=== PATIENT | female | born 1985 | race Caucasian/White ===

== ENCOUNTER 2020-02-25 13:51 | Outpatient (CLI) | payer OTHER, SELFPAY ==
[2020-02-26 01:53] LABS: SARS-CoV-2 RNA PCR Negative
== END 2020-02-25 13:52 | disposition home or self-care (01) ==
LOC: CHSLAB 13:54
PROVIDERS: PCP Internal Medicine; Visit Provider Internal Medicine
DX: Z20.828 Contact with and (suspected) exposure to other viral communicable diseases (principal)
CPT/HCPCS: 87635; C9803; U0003

== ENCOUNTER 2020-04-05 12:25 | Outpatient (CLI) | payer OTHER, SELFPAY ==
[2020-04-06 13:52] LABS: SARS-CoV-2 RNA PCR Negative
== END 2020-04-05 12:26 | disposition home or self-care (01) ==
LOC: CHSLAB 12:28
PROVIDERS: PCP Internal Medicine; Visit Provider Internal Medicine
DX: Z20.828 Contact with and (suspected) exposure to other viral communicable diseases (principal)
CPT/HCPCS: 87635; C9803; U0003

== ENCOUNTER 2020-05-26 13:59 | Outpatient (CLI) | payer OTHER, SELFPAY ==
--- NOTE | ~2020-05-26 | MMUS_ITS ---
EXAMINATION: MM diagnostic stefano BI w clifford, US breast BI limited HISTORY: Palpable medial right breast lump and thickening of the lateral left breast TECHNIQUE: 3 D ML, MLO and CC tomosynthesis views of both breasts were performed and synthetic 2-D im ages were generated. CAD analysis was submitted and interpreted. High resolution targeted bilateral b reast ultrasound was performed. COMPARISON: 08/08/2026 bilateral diagnostic mammogram and limited right breast ultrasound BREAST PARENCHYMAL COMPOSITION: There are scattered areas of fibroglandular density. FINDINGS: MAMMOGRAPHIC FINDINGS: No suspicious mass or architectural distortion, malignant calcification, skin thickening or retractio n or significant new or developing density is detected. Occasional bilateral punctate microcalcifica tions. ULTRASOUND: There is no evidence of focal abnormal solid or cystic lesion in the vicinity of the IMPRESSION: 1. No mammographic evidence of malignancy 2. Routine annual mammographic screening BI-RADS Category 2: Benign finding(s). Reviewed, dictated and finalized at location A. TER OPERATOR IMPRESSION: 1. No mammographic evidence of malignancy 2. Routine annual mammographic screening BI-RADS Category 2: Benign finding(s).
== END 2020-05-26 14:00 | disposition home or self-care (01) ==
PROVIDERS: PCP Internal Medicine; Visit Provider Nurse Practitioner Obstetrics & Gynecology
DX: N63.0 Unspecified lump in unspecified breast (principal)
CPT/HCPCS: 76642; 77062; 77066; G0279

== ENCOUNTER 2020-10-24 09:29 | Outpatient (CLI) | payer OTHER, SELFPAY ==
[2020-10-24 12:44] LABS: SARS-CoV-2 RNA PCR Negative (Negative)
== END 2020-10-24 09:30 | disposition home or self-care (01) ==
LOC: CHSLAB 09:31
PROVIDERS: PCP Internal Medicine; Visit Provider Internal Medicine
DX: J06.9 Acute upper respiratory infection, unspecified (principal); J02.9 Acute pharyngitis, unspecified; Z20.822 Contact with and (suspected) exposure to COVID-19
CPT/HCPCS: 87081; 87880; C9803; U0003; U0005

== ENCOUNTER 2021-02-05 11:54 | Outpatient (CLI) | payer OTHER, SELFPAY ==
[2021-02-05 13:50] LABS: SARS-CoV-2 RNA PCR Negative (Negative)
== END 2021-02-05 11:55 | disposition home or self-care (01) ==
LOC: CHSLAB 11:56
PROVIDERS: PCP Internal Medicine; Visit Provider Internal Medicine
DX: Z20.822 Contact with and (suspected) exposure to COVID-19 (principal)
CPT/HCPCS: C9803; U0003; U0005

== ENCOUNTER 2021-06-05 16:54 | Outpatient (CLI) | payer OTHER, SELFPAY ==
[2021-06-05 18:16] LABS: SARS-CoV-2 RNA PCR Negative (Negative)
== END 2021-06-05 16:55 | disposition home or self-care (01) ==
PROVIDERS: PCP Internal Medicine; Visit Provider Internal Medicine
DX: Z20.822 Contact with and (suspected) exposure to COVID-19 (principal)
CPT/HCPCS: C9803; U0003; U0005

== ENCOUNTER 2021-06-12 11:23 | Outpatient (CLI) | payer OTHER, SELFPAY ==
--- NOTE | ~2021-06-12 | XR_ITS ---
XR sinus <3V DATE: 06/12/2021 11:50 INDICATION: Right facial pain. Sinusitis. TECHNIQUE: bri Caceres, lateral and submental vertical views COMPARISON: None FINDINGS: The paranasal sinuses and mastoid air cells are normally developed and aerated. Mild rightward bowing of the nasal septum. IMPRESSION: Normally aerated paranasal sinuses and mastoid air cells Reviewed, dictated and finalized at location B. CONTROLLER
--- NOTE | ~2021-06-12 | XR_ITS ---
XR_[id number]_CR 06/12/2021 11:50 Indication: Neck pain Procedure: 3 views cervical spine Comparison: No prior studies for comparison. Findings: Straightening of cervical lordosis, likely due to muscle spasm. Vertebral body and disc spa sisi are preserved. No prevertebral soft tissue abnormality. No fracture or traumatic malalignment. Od ontoid process within normal limits. Impression: 1: No significant abnormality of the cervical spine. Reviewed, dictated and finalized at location A. ATAL CRITICAL CARE NURSE Impression: 1: No significant abnormality of the cervical spine.
== END 2021-06-12 11:24 | disposition home or self-care (01) ==
LOC: CHSLAB 11:25
PROVIDERS: PCP Internal Medicine; Visit Provider Internal Medicine
DX: J32.9 Chronic sinusitis, unspecified (principal); M54.2 Cervicalgia
CPT/HCPCS: 70210; 72040

== ENCOUNTER 2021-07-16 17:31 | Outpatient (CLI) | payer OTHER, SELFPAY ==
[2021-07-16 18:18] LABS: SARS-CoV-2 Ag Negative (Negative)
[2021-07-17 19:08] LABS: SARS-CoV-2 RNA PCR Negative
== END 2021-07-16 17:32 | disposition home or self-care (01) ==
PROVIDERS: PCP Internal Medicine; Visit Provider Internal Medicine
DX: J06.9 Acute upper respiratory infection, unspecified (principal); Z20.822 Contact with and (suspected) exposure to COVID-19
CPT/HCPCS: 87426; C9803; U0003; U0005

== ENCOUNTER 2021-07-30 16:58 | Outpatient (CLI) | payer OTHER, SELFPAY ==
[2021-07-30 18:30] LABS: SARS-CoV-2 Ag Negative (Negative)
[2021-07-30 18:57] LABS: SARS-CoV-2 RNA PCR Negative (Negative)
== END 2021-07-30 16:59 | disposition home or self-care (01) ==
LOC: CHSLAB 17:00
PROVIDERS: PCP Internal Medicine; Visit Provider Nurse Practitioner Family
DX: R50.9 Fever, unspecified (principal); J06.9 Acute upper respiratory infection, unspecified; Z20.822 Contact with and (suspected) exposure to COVID-19
CPT/HCPCS: 87426; C9803; U0003; U0005

== ENCOUNTER 2021-12-25 15:03 | Outpatient (CLI) | payer OTHER, SELFPAY ==
[2021-12-25 15:43] LABS: Basophils Absolute Auto 0.05 K/mm3 (0.00-0.10); Basophils Percent Auto 0.6 % (0.0-1.0); Eosinophils Absolute Auto 0.16 K/mm3 (0.02-0.50); Hematocrit 42.1 % (35.0-49.0); Hemoglobin 14.1 g/dL (12.0-15.0); Immature Granulocyte Absolute 0.04 K/mm3 (0.00-0.00); Immature Granulocyte Percent A 0.5 % (0.0-0.0); Lymphocytes Percent Auto 40.7 % (18.0-42.0); Mean Corpuscular HGB Conc 33.5 g/dL (32.0-36.0); Mean Corpuscular Hemoglobin 30.6 pg (27.0-31.0); Mean Corpuscular Volume 91.3 fL (78.0-102.0); Monocytes Absolute Auto 0.43 K/mm3 (0.10-0.90); Monocytes Percent Auto 5.3 % (2.0-11.0); Neutrophils Absolute Auto 4.1 K/mm3 (1.7-7.2); Neutrophils Percent Auto 50.9 % (50.0-70.0); Platelet Count Result 415 K/mm3 (150-420); Red Blood Count 4.61 M/mm3 (4.20-5.40); Red Cell Distribution Width 12.9 % (11.6-14.4); White Blood Count 8.1 K/mm3 (4.8-10.8)
[2021-12-25 15:57] LABS: Hemoglobin A1C 5.6 % (<5.7)
[2021-12-25 16:35] LABS: Alanine Aminotransferase 53 U/L (14-59); Alkaline Phosphatase 141 U/L (46-116); Anion Gap 10 mmol/L (8-16); Aspartate Amino Transferase 21 U/L (15-37); Bilirubin,Total 0.8 mg/dL (0.00-1.00); Blood Urea Nitrogen 13 mg/dL (7-18); Calcium 9.1 mg/dL (8.5-10.1); Carbon Dioxide 27 mmol/L (21-32); Chloride 102 mmol/L (98-108); Cholesterol 266 mg/dL (0-200); Estimated Glomerular Filt Rate > 60; Glucose 86 mg/dL (70-99); HDL Direct 32 mg/dL (40-60); Osmolality Calculated 287 mOsm/kg (285-295); Potassium 3.8 mmol/L (3.5-5.1); Sodium 139 mmol/L (136-145); Thyroid Stimulating Hormone 2.02 uIU/mL (0.36-3.74); Total Protein 7.4 g/dL (6.4-8.2); Vitamin B12 347 pg/mL (193-986)
[2021-12-25 16:37] LABS: Beta HCG Quantitative < 1.00 mIU/mL (0-6); LDL Cholesterol Calculated 131 mg/dL (<130); LDL Cholesterol Direct 146 mg/dL (0-130); Triglycerides 517 mg/dL (0-150)
[2021-12-27 05:26] LABS: Insulin Level Total 12.8 uIU/mL (<=19.6)
[2021-12-27 11:43] LABS: DHEA-Sulfate 136 mcg/dL (23-266)
[2021-12-27 12:22] LABS: Vitamin D 25 Hydroxy 22 ng/mL (30-100)
[2021-12-28 14:54] LABS: Prolactin 6.7 ng/mL (***)
[2021-12-29 11:57] LABS: Testosterone Total 24 ng/dL (2-45)
== END 2021-12-25 15:04 | disposition home or self-care (01) ==
LOC: CHSLAB 15:05
PROVIDERS: PCP Physician Assistant; Visit Provider Physician Assistant
DX: L68.0 Hirsutism (principal); M25.50 Pain in unspecified joint; E53.8 Deficiency of other specified B group vitamins; E55.9 Vitamin D deficiency, unspecified; R53.83 Other fatigue; N92.6 Irregular menstruation, unspecified; E66.9 Obesity, unspecified; Z13.220 Encounter for screening for lipoid disorders
CPT/HCPCS: 36415; 80053; 80061; 82306; 82607; 82627; 83036; 83498; 83525; 83721; 84146; 84403; 84443; 84702; 85025; 86038

== ENCOUNTER 2022-02-20 12:19 | Emergency (ER) | payer OTHER, SELFPAY ==
--- NOTE | ~2022-02-20 | XR_ITS ---
EXAMINATION: XR chest 1V portable DATE: 02/20/2022 13:01 INDICATION: Right chest pain. Dizziness. TECHNIQUE: A single frontal view of the chest was obtained. COMPARISON: Chest 2 views 06/30/2019 FINDINGS: The chest demonstrates clear lungs without pneumonia, pleural effusion, or pneumothorax. Th e heart size is normal. IMPRESSION: 1. No acute cardiopulmonary disease. Reviewed, dictated and finalized at location A.
[2022-02-20 12:20] VITALS: BP 125/82; PULSE 66; RESP 18; TEMP 36.4; O2SAT 99
--- NOTE | 2022-02-20 12:32 | ED.URI ---
HPI - URI/Sore Throat General Chief Complaint: Unspecified Stated Complaint: DIZZY,SWEATING,PAIN IN SIDES COVID POSITIVE Time Seen by Provider: 02/20/22 12:22 Source: patient and RN notes reviewed Mode of arrival: ambulatory Limitations: no limitations History of Present Illness HPI Narrative: patient states that she began having symptoms 5 days ago and today felt dizzy and diaphoretic. She called her primary care physician thought she should be seen in the emergency room. Thought she might need a chest x-ray. She also complains of some bilateral flank discomfort without fever or chills. She says her urine seems more concentrated. She does admit that she has not been pushing enough fluids 2 days ago. She had 2 days of GI symptoms that have since resolved. She had a scratchy throat cough and body aches. MD elicited complaint: fever, cough and sore throat Onset (ago): day(s) (5) Consistency: intermittent Severity: moderate Description of mucous: clear Exacerbating factors: nothing Relieving factors: nothing Context: sick contacts Associated symptoms: fever, chills, myalgias, nasal congestion, sore throat, cough, nausea, vomiting and diarrhea Treatments prior to arrival: none Related Data Home Medications Medication Instructions Recorded Confirmed escitalopram oxalate 20 mg tablet 20 mg PO DAILY 06/13/19 02/20/22 (Lexapro) alprazolam 0.25 mg tablet 0.25 mg PO PRN PRN Anxiety 02/20/22 02/20/22 Allergies Allergy/AdvReac Type Severity Reaction Status Date / Time amoxicillin [From Augmentin] Allergy Nausea and Verified 02/20/22 12:39 Vomiting cephalexin [From Keflex] Allergy Unknown Verified 02/20/22 12:36 clavulanic acid Allergy Nausea and Verified 02/20/22 12:39 [From Augmentin] Vomiting clindamycin Allergy Rash Verified 02/20/22 12:39 doxycycline Allergy Rash Verified 02/20/22 12:39 Penicillins Allergy Headache Verified 02/20/22 12:39 cetirizine AdvReac Unknown Jittery Verified 02/20/22 12:36 ciprofloxacin AdvReac Unknown DIZZINESS Verified 02/20/22 12:36 AND NAUSEA Review of Systems Review of Systems: All systems reviewed & are unremarkable except as noted in HPI and below PMFSH Past Medical History Medical History (Updated 02/20/22 @ 13:17 by Efrain Ferreira MD) Depression Surgical History Surgical History (Updated 02/20/22 @ 12:37 by Efrain Ferreira MD) History of laparoscopic adjustable gastric banding been removed History of tonsillectomy Hx of cholecystectomy Family History Family History Mother Diabetes mellitus Family history of mental disorder Depression Family history of coronary artery disease Father No problems noted. Social History Social History Smoking status: Current every day smoker Alcohol intake: never Exam Const: General: healthy appearing, no acute distress and alert Nutritional Appearance: well nourished and obese Orientation/consciousness: patient oriented x3 Limitations: no limitations HENMT: Head: normal to inspection Ears: external ears normal General nose exam: Normal external nose present Face and sinus: normal facial exam Mouth: Yes Normal oral and palatal mucosa present and Yes moist mucous membranes Throat: posterior oropharynx normal Eyes: Conjunctivae: conjunctivae normal Pupils: Equal, round and reactive pupils present EOM: EOMs intact bilaterally Neck: Neck: normal visual inspection Resp: Effort & Inspection: normal respiratory effort Auscultation: clear to auscultation bilaterally Cardio: Rate: regular rate Rhythm: regular rhythm GI: GI Palp: Yes Soft to palpation and No Tenderness to palpation present (GI) Auscultation: normal bowel sounds Back/Spine/Pelvis: Cervical Spine: cervical ROM normal Thoracic/Lumbar Spine: thoraco-lumbar ROM normal Skin: General skin exam: normal color Rashes: no rashe
[2022-02-20 12:58] LABS: Add Urine Microscopic? YES; Appearance Urine Clear (Clear); Bilirubin Urine Negative (Negative); Blood Urine 3+ (Negative); Color Urine Yellow (Yellow); Glucose Urine UA Negative (Negative); Ketones Urine Negative (Negative); Leukocyte Esterase Ur Negative LEU/UL (Negative); Nitrate Urine Negative (Negative); Protein Urine Trace (Negative); Urobilinogen Urine 0.2 mg/dL (0.2-1.0)
[2022-02-20 13:02] LABS: Squamous Epithelial Cell Urine Moderate /hpf (Few); WBC Urine None seen /hpf (0-3)
[2022-02-20 13:03] LABS: Bacteria Urine 2+ /hpf
[2022-02-20 13:20] VITALS: PULSE 80; RESP 18; TEMP 36.4; O2SAT 98
== END 2022-02-20 13:20 | disposition home or self-care (01) ==
PROVIDERS: Emergency Provider Emergency Medicine
DX: U07.1 COVID-19 (principal)
CPT/HCPCS: 71045; 81001; 99283

== ENCOUNTER 2022-04-18 12:35 | Emergency (ER) | payer OTHER, SELFPAY ==
[2022-04-18 12:50] VITALS: BP 101/57; PULSE 89; RESP 20; TEMP 36.7; O2SAT 98
--- NOTE | 2022-04-18 13:24 | ED.URI ---
HPI - URI/Sore Throat General Chief Complaint: Upper Respiratory Infection Stated Complaint: Sore Throat,Lt Ear Irritation Source: patient and RN notes reviewed Mode of arrival: ambulatory Limitations: no limitations History of Present Illness HPI Narrative: 36-year-old female presenting for complaint of left ear pain, fatigue, sinus congestion and drainage. She endorses last night ear pain was worse, and today sore throat was worse. She is not taking anything for allergies. She endorses her child was sick last week. Denies sob, wheezing, nausea vomiting diarrhea, fevers chills. MD elicited complaint: cough Related Data Home Medications Medication Instructions Recorded Confirmed escitalopram oxalate 20 mg tablet 20 mg PO DAILY 06/13/19 04/18/22 (Lexapro) alprazolam 0.25 mg tablet 0.25 mg PO PRN PRN Anxiety 02/20/22 04/18/22 omeprazole 40 mg capsule,delayed 40 mg PO DAILY 04/18/22 04/18/22 release Allergies Allergy/AdvReac Type Severity Reaction Status Date / Time amoxicillin [From Augmentin] AdvReac Intermediate Nausea and Verified 04/18/22 13:15 Vomiting cetirizine AdvReac Intermediate Jittery Verified 04/18/22 13:15 ciprofloxacin AdvReac Intermediate DIZZINESS Verified 04/18/22 13:15 AND NAUSEA clavulanic acid AdvReac Intermediate Nausea and Verified 04/18/22 13:15 [From Augmentin] Vomiting Penicillins AdvReac Intermediate Headache Verified 04/18/22 13:15 cephalexin [From Keflex] AdvReac Mild Hives Verified 04/18/22 13:15 clindamycin AdvReac Mild Rash Verified 04/18/22 13:15 doxycycline AdvReac Mild Rash Verified 04/18/22 13:15 Review of Systems Review of Systems: ROS per HPI [facility] Past Medical History Medical History Depression Surgical History Surgical History History of laparoscopic adjustable gastric banding been removed History of tonsillectomy Hx of cholecystectomy Family History Family History Mother Diabetes mellitus Family history of mental disorder Depression Family history of coronary artery disease Father No problems noted. Social History Social History Smoking status: Current every day smoker Alcohol intake: never Exam Narrative: GENERAL: well-appearing EYES: PERRLA, conjunctivae clear ENT: Mucous membranes moist. Right TM pearly ashraf with light reflex; Left TM erythematous with erythematous canal, no tenderness or purulence; no tragal tenderness. Oropharynx erythematous without lesions or exudate, tonsils absent no drooling, no hoarseness, no trismus, uvula midline. No tripod positioning, muffled voice, soft palate or pharyngeal wall bulging NECK: Supple. No lymphadenopathy CHEST: Clear to auscultation, breath sounds equal. HEART: Regular rate and rhythm. No murmur heard. SKIN: Warm, dry, no rash. Course Course Emergency Course: Patient is aware of diagnosis, understands and agrees to treatment plan. Anticipatory guidance given. Patient agrees to follow-up as directed and is aware of reasons to seek care at the emergency department. Portions of this record may have been created with voice recognition software Level of Care: Express Care Visit Vital Signs Vital signs: Vital Signs Temperature 98.0 F 04/18/22 12:50 Pulse Rate 89 04/18/22 12:50 Respiratory Rate 20 04/18/22 12:50 Blood Pressure 101/57 L 04/18/22 12:50 Pulse Oximetry 98 04/18/22 12:50 Oxygen Delivery Room Air 04/18/22 12:50 Temperature 98.0 F 04/18/22 12:50 Pulse Rate 89 04/18/22 12:50 Respiratory Rate 20 04/18/22 12:50 Blood Pressure 101/57 L 04/18/22 12:50 Pulse Oximetry 98 04/18/22 12:50 Oxygen Delivery Room Air 04/18/22 12:50 reviewed MDM - URI/Sore Throat MDM Narrative Medical decision
== END 2022-04-18 13:10 | disposition home or self-care (01) ==
PROVIDERS: Emergency Provider Nurse Practitioner Family; PCP Physician Assistant
DX: J30.9 Allergic rhinitis, unspecified (principal); Z20.822 Contact with and (suspected) exposure to COVID-19; F32.A Depression, unspecified
CPT/HCPCS: 87081; 87426; 87804; 87880; 99213; C9803; G0463

== ENCOUNTER 2022-09-03 09:59 | Emergency (ER) | payer OTHER, SELFPAY ==
--- NOTE | ~2022-09-03 | CT_ITS ---
Non-contrast CT scan of the Abdomen and Pelvis Clinical indication: Right flank pain Technique: 2.5 mm axial scans were obtained through the abdomen and pelvis without intravenous or or al contrast. Dose reduction technique was used on this scan by utilizing automated exposure control a nd iterative reconstruction technique. The dose-length product (DLP) was 584.08 mGy-cm. COMPARISON: 06/07/2018 Findings: Images through the lung bases reveal no abnormalities. There is no evidence of renal or ureteral calculi. The kidneys and the ureters are nondilated. The liver, spleen, pancreas, and adrenals appear normal. Cholecystectomy clips are present. There is no aortic aneurysm. There is no evidence of bowel obstruction. Normal appendix. Images through the pelvis were performed. There is no evidence of ascites or lymphadenopathy. Urinary bladder unremarkable. No adnexal mass evident. No ascites. Impression: No significant abnormality seen. Reviewed, dictated and finalized at [facility]. Impression: No significant abnormality seen.
[2022-09-03 09:59] VITALS: BP 139/89; PULSE 74; RESP 16; TEMP 36; O2SAT 100
--- NOTE | 2022-09-03 10:10 | ED.ABDPAIN ---
HPI - Abdominal Pain General Chief Complaint: Back Pain/Injury Stated Complaint: back pain/urinary discomfort/nausea Time Seen by Provider: 09/03/22 10:06 Source: patient and RN notes reviewed Mode of arrival: ambulatory Limitations: no limitations History of Present Illness MD elicited complaint: flank pain Pertinent past history: none Onset (ago): day(s) (4 worse in the last 24 hours) Pain Consistency: intermittent Location: R flank Severity: moderate Quality: stabbing and sharp Radiation: RLQ Migration to: no migration Exacerbating factors: nothing Relieving factors: nothing Associated symptoms: denies other symptoms Related Data Home Medications Medication Instructions Recorded Confirmed escitalopram oxalate 20 mg tablet 20 mg PO DAILY 06/13/19 09/03/22 (Lexapro) Allergies Allergy/AdvReac Type Severity Reaction Status Date / Time amoxicillin [From Augmentin] AdvReac Intermediate Nausea and Verified 09/03/22 10:12 Vomiting cetirizine AdvReac Intermediate Jittery Verified 09/03/22 10:12 ciprofloxacin AdvReac Intermediate DIZZINESS Verified 09/03/22 10:12 AND NAUSEA clavulanic acid AdvReac Intermediate Nausea and Verified 09/03/22 10:12 [From Augmentin] Vomiting Penicillins AdvReac Intermediate Headache Verified 09/03/22 10:12 cephalexin [From Keflex] AdvReac Mild Hives Verified 09/03/22 10:12 clindamycin AdvReac Mild Rash Verified 09/03/22 10:12 doxycycline AdvReac Mild Rash Verified 09/03/22 10:12 Review of Systems Review of Systems: All systems reviewed & are unremarkable except as noted in HPI and below Constitutional: Constitutional: Denies chills and Denies fever(s) Gastrointestinal: Gastrointestinal: Denies nausea and Denies vomiting PMF Past Medical History Medical History (Updated 09/03/22 @ 11:31 by Efrain Ferreira MD) Depression Hypercholesterolemia Surgical History Surgical History History of laparoscopic adjustable gastric banding been removed History of tonsillectomy Hx of cholecystectomy Family History Family History Mother Diabetes mellitus Family history of mental disorder Depression Family history of coronary artery disease Father No problems noted. Social History Social History Smoking status: Current every day smoker Alcohol intake: never Exam Const: General: healthy appearing, no acute distress and alert Nutritional Appearance: well nourished and obese Orientation/consciousness: patient oriented x3 Limitations: no limitations Other: female nurse in room during examination. HENMT: Head: normal to inspection Ears: external ears normal Face/Nose/Sinus: Normal external nose present Face and sinus: normal facial exam Mouth: Yes moist mucous membranes Eyes: Conjunctivae: conjunctivae normal Pupils: Equal, round and reactive pupils present EOM: EOMs intact bilaterally Neck: Neck: normal visual inspection Resp: Effort & Inspection: normal respiratory effort Auscultation: clear to auscultation bilaterally Cardio: Rate: regular rate Rhythm: regular rhythm GI: GI Palp: Yes Soft to palpation and No Tenderness to palpation present (GI) Auscultation: normal bowel sounds Back/Spine/Pelvis: Back: CVA tenderness ( moderate on the right) Cervical Spine: cervical ROM normal Thoracic/Lumbar Spine: thoraco-lumbar ROM normal Skin: General skin exam: normal color Rashes: no rashes Neuro: General: patient oriented x3, moves all extremities, no focal motor deficits and CN's II-XI intact bilaterally Speech: normal speech Gait exam (Neuro): Normal gait present Extrem: General: normal to inspection and no clubbing, cyanosis or edema Psych: Mental Status: mental status grossly normal Affect: normal affect Attitude: cooperative Course Vital Signs Vital signs: Vital Signs
[2022-09-03] MEDS: KETOROLAC 30 MG/ML VIAL (*BKC) IM (10:25)
[2022-09-03 10:29] LABS: Basophils Absolute Auto 0.05 K/mm3 (0.00-0.10); Basophils Percent Auto 0.6 % (0.0-1.0); Eosinophils Absolute Auto 0.19 K/mm3 (0.02-0.50); Eosinophils Percent Auto 2.5 % (1.0-6.0); Hematocrit 41.9 % (35.0-49.0); Hemoglobin 13.5 g/dL (12.0-15.0); Immature Granulocyte Absolute 0.06 K/mm3 (0.00-0.00); Immature Granulocyte Percent A 0.8 % (0.0-0.0); Lymphocytes Absolute Auto 1.94 K/mm3 (1.10-4.50); Lymphocytes Percent Auto 25.1 % (18.0-42.0); Mean Corpuscular HGB Conc 32.2 g/dL (32.0-36.0); Mean Corpuscular Hemoglobin 29.9 pg (27.0-31.0); Mean Corpuscular Volume 92.9 fL (78.0-102.0); Mean Platelet Volume 9.1 fl (9.2-11.8); Monocytes Absolute Auto 0.45 K/mm3 (0.10-0.90); Monocytes Percent Auto 5.8 % (2.0-11.0); Neutrophils Percent Auto 65.2 % (50.0-70.0); Platelet Count Result 420 K/mm3 (150-420); Red Blood Count 4.51 M/mm3 (4.20-5.40); White Blood Count 7.7 K/mm3 (4.8-10.8)
[2022-09-03 10:30] LABS: Appearance Urine Clear (Clear); Bilirubin Urine Negative (Negative); Blood Urine Negative (Negative); Color Urine Light Yellow (Yellow); Glucose Urine UA Negative (Negative); Ketones Urine Negative (Negative); Leukocyte Esterase Ur Negative LEU/UL (Negative); Nitrate Urine Negative (Negative); Protein Urine Negative (Negative); Urobilinogen Urine 0.2 mg/dL (0.2-1.0); pH Urine 5.5 (5.0-8.0)
[2022-09-03 10:36] LABS: Add Urine Microscopic? NO
[2022-09-03 10:43] LABS: Alanine Aminotransferase 48 U/L (14-59); Albumin Level 3.8 g/dL (3.4-5.0); Alkaline Phosphatase 158 U/L (46-116); Anion Gap 7 mmol/L (8-16); Aspartate Amino Transferase 18 U/L (15-37); Bilirubin,Total 0.4 mg/dL (0.00-1.00); Blood Urea Nitrogen 14 mg/dL (7-18); CRP 0.5 mg/dL (0.0-0.9); Calcium 9.1 mg/dL (8.5-10.1); Carbon Dioxide 30 mmol/L (21-32); Chloride 105 mmol/L (98-108); Estimated CRCL calculation 122 ml/min; Estimated Glomerular Filt Rate > 60; Glucose 96 mg/dL (70-99); Osmolality Calculated 294 mOsm/kg (285-295); Potassium 4.5 mmol/L (3.5-5.1); Sodium 142 mmol/L (136-145); Total Protein 7.3 g/dL (6.4-8.2)
[2022-09-03 10:51] LABS: Pregnancy On Board Control Positive; Urine Pregnancy Test Negative
--- NOTE | 2022-09-03 11:09 | PC.NURSE ---
PT HAS RETURNED FROM CT AT THIS TIME. NAD NOTED. WILL CONTINUE TO MONITOR. PAIN TO RT FLANK WAS REPRODUCIBLE UPON PALPATION PER ERP.
[2022-09-03 11:13] VITALS: BP 111/71; PULSE 62; RESP 16; O2SAT 98
== END 2022-09-03 11:35 | disposition home or self-care (01) ==
PROVIDERS: Emergency Provider Emergency Medicine; PCP Physician Assistant
DX: S39.012A Strain of muscle, fascia and tendon of lower back, initial encounter (principal); F32.A Depression, unspecified; F17.200 Nicotine dependence, unspecified, uncomplicated; X58.XXXA Exposure to other specified factors, initial encounter
CPT/HCPCS: 36415; 74176; 80053; 81003; 81025; 85025; 86140; 96372; 99284; J1885

== ENCOUNTER 2022-09-20 11:46 | Emergency (ER) | payer OTHER, SELFPAY ==
[2022-09-20 11:48] VITALS: BP 141/65; PULSE 84; RESP 18; TEMP 37.2; O2SAT 99
--- NOTE | 2022-09-20 15:37 | ED.EYEPROB ---
HPI - Eye Problem General Chief complaint: Eye Problems Stated complaint: [place] [facility] Time Seen by Provider: 09/20/22 11:59 Source: patient Mode of arrival: ambulatory Limitations: no limitations History of Present Illness chief complaint: eye pain Onset (ago): day(s) (1) Onset description: sudden Duration: constant Location: both eyes Eye Symptoms: burning and redness Mechanism: chemical exposure Severity: severe If Pain, Quality: burning Related Data Home Medications Medication Instructions Recorded Confirmed escitalopram oxalate 20 mg tablet 20 mg PO DAILY 06/13/19 09/20/22 (Lexapro) Allergies Allergy/AdvReac Type Severity Reaction Status Date / Time amoxicillin [From Augmentin] AdvReac Intermediate Nausea and Verified 09/03/22 10:12 Vomiting cetirizine AdvReac Intermediate Jittery Verified 09/03/22 10:12 ciprofloxacin AdvReac Intermediate DIZZINESS Verified 09/03/22 10:12 AND NAUSEA clavulanic acid AdvReac Intermediate Nausea and Verified 09/03/22 10:12 [From Augmentin] Vomiting Penicillins AdvReac Intermediate Headache Verified 09/03/22 10:12 cephalexin [From Keflex] AdvReac Mild Hives Verified 09/03/22 10:12 clindamycin AdvReac Mild Rash Verified 09/03/22 10:12 doxycycline AdvReac Mild Rash Verified 09/03/22 10:12 Review of Systems Review of Systems: All systems reviewed & are unremarkable except as noted in HPI and below Constitutional: Constitutional: Denies chills and Denies fever(s) Eyes: Eyes: Denies change in vision ENT: Denies dizziness and Denies nasal congestion Cardiovascular: Cardiovascular: Denies chest pain Respiratory: Respiratory: Denies cough and Denies dyspnea Musculoskeletal: Musculoskeletal: Denies back pain Integumentary/Breasts: Skin/Breast: Denies rash Neurologic: Denies confusion and Denies headache(s) [facility] Past Medical History Medical History (Updated 09/20/22 @ 12:07 by Karlos uPga MD) Depression Hypercholesterolemia Surgical History Surgical History History of laparoscopic adjustable gastric banding been removed History of tonsillectomy Hx of cholecystectomy Family History Family History Mother Diabetes mellitus Family history of mental disorder Depression Family history of coronary artery disease Father No problems noted. Social History Social History Smoking status: Current every day smoker Alcohol intake: never Exam Const: General: healthy appearing Limitations: no limitations HENMT: Head: normal to inspection and no lacerations Face/Nose/Sinus: Normal external nose present and no epistaxis Mouth: Yes Normal oral and palatal mucosa present Teeth and gingiva: dentition normal Throat: uvula midline Eyes: Conjunctivae: conjunctival abnormality bilateral conjunctival chemosis and conjunctival injection diffuse; Negative for conjunctival icterus and without discharge Pupils: Equal, round and reactive pupils present EOM: EOMs intact bilaterally Direct Ophthalmoscopy: no photophobia Neck: Neck: no lymphadenopathy Chest: Chest palpation & inspection: normal inspection of the chest Resp: Effort & Inspection: normal respiratory effort Skin: General skin exam: normal color Rashes: no rashes Neuro: General: moves all extremities and CN's II-XI intact bilaterally Speech: normal speech Extrem: General: normal to inspection and no edema Course Vital Signs Vital signs: Vital Signs Temperature 37.2 C 09/20/22 11:48 Pulse Rate 84 09/20/22 11:48 Respiratory Rate 18 09/20/22 11:48 Blood Pressure 141/65 H 09/20/22 11:48 Pulse Oximetry 99 09/20/22 11:48 Oxygen Delivery Room Air 09/20/22 11:48 Temperature 37.2 C 09/20/22 11:48 Pulse Rate 84 09/20/22 11:48 Respiratory Rate 18 09/20/22 11:48 Blood Pressure 141/65 H
== END 2022-09-20 12:33 | disposition home or self-care (01) ==
PROVIDERS: Emergency Provider Family Medicine; PCP Physician Assistant
DX: H10.13 Acute atopic conjunctivitis, bilateral (principal); E78.00 Pure hypercholesterolemia, unspecified; F32.A Depression, unspecified; F17.210 Nicotine dependence, cigarettes, uncomplicated
CPT/HCPCS: 96372; 99283; J1100

== ENCOUNTER 2023-02-25 11:24 | Emergency (ER) | payer OTHER, SELFPAY ==
[2023-02-25] VITALS (19 sets, daily range): BP systolic 120; BP diastolic 71; PULSE 63–83; RESP 11–25; TEMP 36.7; O2SAT 95–100
--- NOTE | ~2023-02-25 | XR_ITS ---
EXAMINATION: XR chest 2V DATE: 02/25/2023 11:48 INDICATION: Central chest pain TECHNIQUE: PA and lateral views of the chest were obtained. COMPARISON: Chest radiograph dated 02/20/2022 FINDINGS: The lungs remain clear with no focal airspace opacities, pulmonary edema, pleural effusion or pneumot horax. The cardiomediastinal silhouette is normal. Mild thoracic spondylosis. Cholecystectomy clips i n the upper abdomen. IMPRESSION: 1. No acute cardiopulmonary disease. Reviewed, dictated and finalized at location A.
--- NOTE | 2023-02-25 11:25 | ECG_ITS ---
Measurements Intervals [place] Rate: 74 P: 7 PA: 147 QRS: -19 QRSD: 118 T: -1 QT: 384 QTc: 426 Interpretive Statements SINUS RHYTHM INCOMPLETE RIGHT BUNDLE BRANCH BLOCK BORDERLINE ST-T WAVE ABNORMALITY- INFERIOR LEADS BASELINE ARTIFACT- II, III, AVR, AVL, AVF, V3-V6 BORDERLINE ECG NO PREVIOUS ECG AVAILABLE FOR COMPARISON Electronically Signed On 02-25-2023 14:09:06 CDT by Wili Taveras D.O.
--- NOTE | 2023-02-25 11:38 | ED.CHESTPAIN ---
HPI - Chest Pain General Chief Complaint: Chest Pain Stated Complaint: CHEST PAIN Time Seen by Provider: 02/25/23 11:25 Source: patient Mode of arrival: ambulatory Limitations: no limitations History of Present Illness HPI narrative: patient is a 37-year-old female with some chest pain in her left side of her chest. She woke up with some chest pain this morning. She does get anxiety and it is similar however now she is having some arm pain down the left arm and up to the left neck also which is not her normal anxiety. Her mother did had her 1st coronary problem at 49 years of age. Patient is also having some mid epigastric discomfort. She has no gallbladder. MD complaint: chest pain and chest discomfort Onset (ago): hour(s) Timing of current episode: constant Prior episodes: Yes Onset: during rest, during exertion and awoke with symptoms Pain location: substernal and left chest Pain radiation: left arm and neck Severity: moderate Pain scale (0-10): 5 Quality: sharp Relieving factors: nothing Exacerbating factors: nothing Treatment prior to arrival: none Risk Factors Coronary artery disease risk factors: family history of CAD before age 50 Related Data On Oral Contraceptives: No Home Medications Medication Instructions Recorded Confirmed escitalopram oxalate 20 mg tablet 20 mg PO DAILY 06/13/19 09/20/22 (Lexapro) Allergies Allergy/AdvReac Type Severity Reaction Status Date / Time amoxicillin [From Augmentin] AdvReac Intermediate Nausea and Verified 09/03/22 10:12 Vomiting cetirizine AdvReac Intermediate Jittery Verified 09/03/22 10:12 ciprofloxacin AdvReac Intermediate DIZZINESS Verified 09/03/22 10:12 AND NAUSEA clavulanic acid AdvReac Intermediate Nausea and Verified 09/03/22 10:12 [From Augmentin] Vomiting Penicillins AdvReac Intermediate Headache Verified 09/03/22 10:12 cephalexin [From Keflex] AdvReac Mild Hives Verified 09/03/22 10:12 clindamycin AdvReac Mild Rash Verified 09/03/22 10:12 doxycycline AdvReac Mild Rash Verified 09/03/22 10:12 Review of Systems Review of Systems: All systems reviewed & are unremarkable except as noted in HPI and below Constitutional: Constitutional: Reports no additional constitutional complaints Eyes: Eyes: Reports no additional eye complaints ENT: Reports system reviewed and no additional complaints, except as documented Cardiovascular: Cardiovascular: Reports no additional cardiovascular complaints Respiratory: Respiratory: Reports no additional respiratory complaints Gastrointestinal: Gastrointestinal: Reports no additional gastrointestinal complaints Genitourinary: Genitourinary: Reports no additional female genitourinary complaints Musculoskeletal: Musculoskeletal: Reports no additional musculoskeletal complaints Integumentary/Breasts: Skin/Breast: Reports system reviewed and no additional complaints, except as docu Neurologic: Reports system reviewed and no additional complaints, except as documented Psychiatric: Psychiatric: Reports no additional psychiatric complaints Endocrine: Endocrine: Reports no additional endocrine complaints Hematologic/Lymphatic: Hematologic/Lymphatic: Reports no additional hematologic/lymphatic complaints Allergic/Immunologic: Allergic/Immunologic: Reports no additional allergic/immunologic complaints PMFSH Past Medical History Medical History Depression Hypercholesterolemia Surgical History Surgical History History of laparoscopic adjustable gastric banding been removed History of tonsillectomy Hx of cholecystectomy Family History Family History Mother Diabetes mellitus Family history of mental disorder Depression Family history of coronary artery disease Father No problems noted. Social History Social History (Reviewed
[2023-02-25 11:46] LABS: Basophils Absolute Auto 0.07 K/mm3 (0.00-0.10); Basophils Percent Auto 0.7 % (0.0-1.0); Eosinophils Absolute Auto 0.15 K/mm3 (0.02-0.50); Eosinophils Percent Auto 1.6 % (1.0-6.0); Hematocrit 43.6 % (35.0-49.0); Hemoglobin 14.2 g/dL (12.0-15.0); Immature Granulocyte Absolute 0.08 K/mm3 (0.00-0.00); Immature Granulocyte Percent A 0.8 % (0.0-0.0); Lymphocytes Absolute Auto 2.57 K/mm3 (1.10-4.50); Lymphocytes Percent Auto 27.2 % (18.0-42.0); Mean Corpuscular HGB Conc 32.6 g/dL (32.0-36.0); Monocytes Absolute Auto 0.53 K/mm3 (0.10-0.90); Monocytes Percent Auto 5.6 % (2.0-11.0); Neutrophils Absolute Auto 6.1 K/mm3 (1.7-7.2); Neutrophils Percent Auto 64.1 % (50.0-70.0); Platelet Count Result 425 K/mm3 (150-420); Red Blood Count 4.74 M/mm3 (4.20-5.40); Red Cell Distribution Width 12.8 % (11.6-14.4); White Blood Count 9.5 K/mm3 (4.8-10.8)
[2023-02-25 12:00] LABS: INR 0.9; Partial Thromboplastin Time 28.6 SEC (23.90-30.70); Prothrombin Time 10.2 Seconds (9.50-12.10)
[2023-02-25 12:04] LABS: D Dimer 0.37 mg/L (0.19-0.50)
[2023-02-25 12:04] LABS: Alanine Aminotransferase 31 U/L (14-59); Albumin Level 3.9 g/dL (3.4-5.0); Alkaline Phosphatase 147 U/L (46-116); Anion Gap 7 mmol/L (8-16); Aspartate Amino Transferase 14 U/L (15-37); Bilirubin,Total 0.6 mg/dL (0.00-1.00); Blood Urea Nitrogen 10 mg/dL (7-18); Calcium 9.3 mg/dL (8.5-10.1); Carbon Dioxide 28 mmol/L (21-32); Chloride 103 mmol/L (98-108); Estimated CRCL calculation 98 ml/min; Estimated Glomerular Filt Rate > 60; Glucose 85 mg/dL (70-99); Lipase 29 U/L (16-77); Osmolality Calculated 284 mOsm/kg (285-295); Potassium 3.9 mmol/L (3.5-5.1); Sodium 138 mmol/L (136-145); Total Protein 7.5 g/dL (6.4-8.2)
[2023-02-25 12:05] LABS: Troponin I < 4.0 ng/L (0.00-60.4)
[2023-02-25 12:16] LABS: Appearance Urine Slightly Cloudy (Clear); Bilirubin Urine Negative (Negative); Blood Urine Negative (Negative); Color Urine Light Yellow (Yellow); Glucose Urine UA Negative (Negative); Ketones Urine Negative (Negative); Leukocyte Esterase Ur Negative LEU/UL (Negative); Nitrate Urine Negative (Negative); Protein Urine Negative (Negative); Urobilinogen Urine 0.2 mg/dL (0.2-1.0)
[2023-02-25 12:19] LABS: Pregnancy On Board Control Positive; Urine Pregnancy Test Negative
[2023-02-25 12:21] LABS: Add Urine Microscopic? YES; Bacteria Urine Trace /hpf; RBC Urine None seen /hpf (0-2); Squamous Epithelial Cell Urine Moderate /hpf (Few); WBC Urine None seen /hpf (0-3)
[2023-02-25 14:16] LABS: Troponin I < 4.0 ng/L (0.00-60.4)
[2023-02-25] MEDS: predniSONE 20 MG TABLET PO (14:33)
[2023-02-25] MEDS: KETOROLAC (*BKC) 60 MG/2 ML VIAL IM (14:34)
== END 2023-02-25 14:53 | disposition home or self-care (01) ==
PROVIDERS: Emergency Provider Emergency Medicine; PCP Physician Assistant
DX: M94.0 Chondrocostal junction syndrome [Tietze] (principal); R07.89 Other chest pain; F17.200 Nicotine dependence, unspecified, uncomplicated
CPT/HCPCS: 36415; 71046; 80053; 81001; 81025; 83690; 84484; 85025; 85380; 85610; 85730; 93005; 96372; 99284; J1885; J7512

== ENCOUNTER 2023-04-30 11:36 | Emergency (ER) | payer OTHER, SELFPAY ==
[2023-04-30 11:59] VITALS: BP 106/52; PULSE 69; RESP 18; TEMP 36.1; O2SAT 100
--- NOTE | 2023-04-30 12:01 | ED.URI ---
HPI - URI/Sore Throat General Chief Complaint: Upper Respiratory Infection Stated Complaint: rt discomfort,cough,nasal drainage Time Seen by Provider: 04/30/23 12:04 Source: patient, RN notes reviewed and old records reviewed Mode of arrival: ambulatory Limitations: no limitations History of Present Illness HPI Narrative: 37-year-old female presents to the [facility] with complaints of right ear discomfort, cough and nasal drainage. Ear pain started Friday 5 days ago, cough started Friday, increased on Friday nasal drainage started last Friday Has taken Tylenol Motrin. Been using a Neti pot Flonase. Denies any fevers, chest pain, pain. Treatments prior to arrival: cold medicine Related Data Home Medications Medication Instructions Recorded Confirmed escitalopram oxalate 20 mg tablet 20 mg PO DAILY 06/13/19 04/30/23 (Lexapro) alprazolam 0.25 mg tablet 0.25 mg DIRECTED 04/30/23 04/30/23 Allergies Allergy/AdvReac Type Severity Reaction Status Date / Time amoxicillin [From Augmentin] AdvReac Intermediate Nausea and Verified 09/03/22 10:12 Vomiting cetirizine AdvReac Intermediate Jittery Verified 09/03/22 10:12 ciprofloxacin AdvReac Intermediate DIZZINESS Verified 09/03/22 10:12 AND NAUSEA clavulanic acid AdvReac Intermediate Nausea and Verified 09/03/22 10:12 [From Augmentin] Vomiting Penicillins AdvReac Intermediate Headache Verified 09/03/22 10:12 cephalexin [From Keflex] AdvReac Mild Hives Verified 09/03/22 10:12 clindamycin AdvReac Mild Rash Verified 09/03/22 10:12 doxycycline AdvReac Mild Rash Verified 09/03/22 10:12 Review of Systems Review of Systems: All systems reviewed & are unremarkable except as noted in HPI and below Constitutional: Constitutional: Reports no additional constitutional complaints Eyes: Eyes: Reports no additional eye complaints ENT: Reports as per HPI Cardiovascular: Cardiovascular: Reports no additional cardiovascular complaints, Denies chest pain and Denies dyspnea Respiratory: Respiratory: Reports as per HPI, Denies chest congestion, Reports cough and Denies dyspnea Gastrointestinal: Gastrointestinal: Reports no additional gastrointestinal complaints, Denies abdominal pain, Denies nausea and Denies vomiting Musculoskeletal: Musculoskeletal: Reports no additional musculoskeletal complaints Integumentary/Breasts: Skin/Breast: Reports system reviewed and no additional complaints, except as docu Neurologic: Reports system reviewed and no additional complaints, except as documented Psychiatric: Psychiatric: Reports no additional psychiatric complaints Allergic/Immunologic: Allergic/Immunologic: Reports no additional allergic/immunologic complaints PMFSH Past Medical History Medical History Depression Hypercholesterolemia Surgical History Surgical History History of laparoscopic adjustable gastric banding been removed History of tonsillectomy Hx of cholecystectomy Family History Family History Mother Diabetes mellitus Family history of mental disorder Depression Family history of coronary artery disease Father No problems noted. Social History Social History Smoking status: Current every day smoker Alcohol intake: never Comments At the time of my signature, I reviewed and agree with the nursing past medical, surgical, social, and family history. There is no relevant family history pertinent to the patient complaint. Exam Const: General: cooperative, healthy appearing, comfortable, no acute distress, well developed, alert and well nourished Nutritional Appearance: well nourished and obese Orientation/consciousness: patient oriented x3 Limitations: no limitations HENMT: Head: normal to inspection Ears: heari
== END 2023-04-30 12:29 | disposition home or self-care (01) ==
PROVIDERS: Emergency Provider Nurse Practitioner; PCP Physician Assistant
DX: H65.01 Acute serous otitis media, right ear (principal); J06.9 Acute upper respiratory infection, unspecified; F17.200 Nicotine dependence, unspecified, uncomplicated; E78.00 Pure hypercholesterolemia, unspecified; F32.A Depression, unspecified
CPT/HCPCS: 99211; G0463

== ENCOUNTER 2024-12-10 09:08 | Outpatient (CLI) | payer OTHER, SELFPAY ==
--- NOTE | ~2024-12-10 | MM_ITS ---
EXAMINATION: MM screening stefano BI w clifford HISTORY: Screening TECHNIQUE: Craniocaudal and mediolateral oblique 3-D tomosynthesis images were obtained and synthetic 2-D images were generated. CAD analysis was submitted and interpreted. COMPARISON: Comparison to multiple prior studies sequentially, with oldest reviewed study dated 08/08. BREAST PARENCHYMAL COMPOSITION: Not Dense: The breasts are almost entirely fatty. FINDINGS: There is no evidence of suspicious mass, calcification, or architectural distortion to sugg est malignancy in either breast. There has been no suspicious interval change. IMPRESSION: 1. No mammographic evidence of malignancy. 2. Recommend routine screening mammography in one year. BI-RADS Category 1: Negative Reviewed, dictated and finalized at location A.
== END 2024-12-10 09:09 | disposition home or self-care (01) ==
LOC: ANHIMG 09:10
PROVIDERS: PCP Physician Assistant; Visit Provider Obstetrics & Gynecology
DX: Z12.31 Encounter for screening mammogram for malignant neoplasm of breast (principal)
CPT/HCPCS: 77063; 77067

== ENCOUNTER 2025-04-29 09:56 | Outpatient (CLI) | payer OTHER, SELFPAY ==
--- NOTE | ~2025-04-29 | CT_ITS ---
EXAMINATION: CT soft tissue neck w con DATE: 04/29/2025 11:17 INDICATION: Neck mass under the left jaw TECHNIQUE: Computed tomography (CT) of the neck was performed with 75 mL Omnipaque-350 intravenous contrast. Automated exposure control and iterative reconstruction technique were employed. The dose-length product was 484.28 mGy-cm. COMPARISON: None FINDINGS: Orbits are normal. Large mucous retention cyst in the right maxillary sinus. Mild bubbly mucus in the right sphenoid sinus. Mastoid air cells and middle ear cavities are clear. Submandibular and parotid glands are normal and symmetric. Thyroid gland is unremarkable. Asymmetrically enlarged left jugular chain lymph node located posterior inferior to the angle of the mandible which measures 2.7 x 2.2 x 1.4 cm. There is a second mildly enlarged 2.5 x 1.7 x 1.2 cm right posterior triangle lymph node positioned posterior lateral to the right carotid bulb. There are a few additional mildly prominent but still normal-sized bilateral cervical lymph nodes all measuring less than sign 9 mm in maximal short axis diameter. No other masses identified. The vasculature is patent and normal in caliber. Airway is unremarkable. Superior mediastinum is unremarkable. Lung apices are normal. Straightening of the normal cervical lordosis. IMPRESSION: 1. Mildly enlarged level 2 left jugular chain lymph node measuring 1.4 cm maximal short axis diameter and right posterior triangle lymph node measuring 1.2 cm in maximal short axis diameter. Differential would include reactive lymphadenopathy, metastatic disease or lymphoma. Could consider ultrasound-g uided core needle biopsy. Reviewed, dictated and finalized at location A. ATION FRACTURING OPERATOR IMPRESSION: 1. Mildly enlarged level 2 left jugular chain lymph node measuring 1.4 cm maxim al short axis diameter and right posterior triangle lymph node measuring 1.2 cm in maximal short axis diameter. Differential would include reactive lymphadeno damian, metastatic disease or lymphoma. Could consider ultrasound-guided core ne edle biopsy.
--- OUTSIDE RECORDS SUMMARY | 2025-04-29 10:40 | XMS_ITS | Clinical Summary ---
Author Organization [facility] Address [address] [place] [phone] Phone Care Team Providers Care Security Flex Utility Officer Name Role Phone Lori Oneill Primary Care Provider [phone] Allergies Active Allergy Reactions Criticality Noted Date Comments Amoxicillin-Pot Clavulanate Urticaria High 09/25/19 16 Reaction as a child/hives. Has not used since. Sulfacetamide Sodium Swelling Medium 12/22/2022 Ciprofloxacin Hives Medium 02/18/2022 Hives and swelling Doxycycline Hives Medium 02/18/2022 Hives and swelling in the legs. Penicillins Headache Low 12/17/2021 Patient had Hives with Augmentin as a child. States for years she was able to take Amoxil alone but the last 2 courses she has noted NAVA that gets worse with each dose so has to avoid it. Able to tolerate Cefdinir currently Sulfa (Sulfonamide Antibiotics) Headache Low 12/30/2022 Medications omeprazole (PriLOSEC) 40 mg capsuleIndicati ons:Epigastric pain Take 1 capsule (40 mg total) by mouth daily 90 capsule 1 4 Active Additional Information Patient taking differently:40 mg oralAs needed, Reported on 02/12/2024 escitalopram (LEXAPRO) 20 mg tabletIndicatio ns:Anxiety TAKE 1 TABLET BY MOUTH EVERY DAY 90 tablet 1 5 Active ergocalciferol (VITAMIN D) 50,000 unit capsuleIndicati ons:Vitamin D deficiency TAKE 1 CAPSULE BY MOUTH ONE TIME PER WEEK 4 capsule 5 5 Active Additional Information Patient not taking.Reported on 04/18/2025 ibuprofen 200 mg tab/cap Take 1 tablet/capsule (200 mg total) by mouth every 6 (six) hours as needed for pain Active hydrocortisone (ANUSOL-HC) 2.5 % rectal creamIndication s:Other hemorrhoids INSERT INTO RECTUM 4 TIMES A DAY NEEDED FOR HEMORRHOIDS /RECTAL DISCOMFORT APPLY TO AFFECTED AREA 30 g 1 5 Active fluticasone propionate (FLONASE) 50 mcg/actuation nasal sprayIndication s:Seasonal allergies SPRAY 2 SPRAYS INTO EACH NOSTRIL EVERY DAY 48 mL 1 5 Active rosuvastatin (CRESTOR) 20 mg tablet Take 1 tablet (20 mg total) by mouth daily Active ALPRAZolam (XANAX) 0.25 mg tabletIndicatio ns:Anxiety TAKE 1 TABLET BY MOUTH NIGHTLY NEEDED FOR ANXIETY. 14 tablet 5 Active cefdinir (OMNICEF) 300 mg capsuleIndicati ons:Bilateral otitis media with effusion Take 1 capsule (300 mg total) by mouth 2 (two) times a day for 5 days 10 capsule 5 04/12/20 25 azithromycin (ZITHROMAX) 250 mg tabletIndicatio ns:Acute pharyngitis, unspecified etiology Take 2 tabs (500 mg) by mouth today, than 1 tab (250 mg) daily for 4 days. 6 tablet 5 04/24/20 25 Active Problems Problem Noted Date Diagnosed Date Obesity (BMI 30-39.9) 04/18/2025 Assessment & Plan (04/18/2025 11:46 AM CDT): Discussed the patient's BMI. The BMI is above average. BMI management plan is completed. BMI Follow-up includes: nutrition counseling, exercise counseling and education provided. BMI 36.0-36.9,adult 04/18/2025 Assessment & Plan (04/18/2025 11:47 AM CDT): Discussed the patient's BMI. The BMI is above average. BMI management plan is completed. BMI Follow-up includes: nutrition counseling, exercise counseling and education provided. AYAKA (obstructive sleep apnea) 02/13/2025 PCOS (polycystic ovarian syndrome) 02/13/2025 Acne vulgaris 02/13/2025 Acute bacterial conjunctivitis of both eyes 01/22 Varicose vein of leg 02/13/2025 Tinea cruris 02/13/2025 Other hemorrhoids 09/21/2023 Assessment & Plan (09/21/2023 10:58 PM CDT): Encouraged increase fiber exercise and water to have regular stools. May need to supplement fiber. Anusol HC provided to apply 4 times a day to hemorrhoids as well as use internally as needed. If symptoms persist she is to follow up immediately Family history of MD (myocardial infarction) Abnormal EKG 03/04/2023 Assessment & Plan (03/04/2023 9:52 PM CDT): Patient was seen at [place] [facility] with chest pain. Was diagnosed with costochondritis but also had abnormal EKG. Will make referral to Cardio for further evaluation. Patient is very concerned about the abnormality in his worried that she may have some type of major cardiac abnormality. Discussed with her the cardiac workup will help identify this but she has modifiable risk factors that she needs to change to decrease her cardiovascular risks. Strongly encouraged her to stop smoking. She states she will do this in declines sales assistant entertainment and media at this time advised that smoking can double the risk of a cardiovascular event. Also advised that diabetes can double her risk. Currently she is not diabetic but encouraged lifestyle to help prevent that from occurring. She also has a very high LDL. Had discussed statin in the past and she would declined. Will recheck the labs but she may benefit from being on a statin. Will follow-up pending her labs Filing encouraged exercise and weight loss as another modifiable this factor. Reminded patient if she would have return of chest pain shortness a breath syncopal episodes or presyncopal episode she is to immediately go back to the ER. She agreed with the plan I am going to order an echo so results will be available to the packaging engineer for her consultation appointment. Cigarette smoker 03/04/2023 Assessment & Plan (09/21/2023 10:57 PM CDT): Encouraged smoking cessation. Discussed 3 minutes. Reviewed options for assistance with cessation. Reviewed insulation helper sequela associated with smoking. Pt declines assistance at this time but may contact the office at anytime for further help as they desire. Assessment & Plan (03/04/2023 9:48 PM CDT): Encouraged smoking cessation. Discussed 3 minutes. Reviewed options for assistance with cessation. Reviewed snf sequela associated with smoking. Pt declines assistance at this time but may contact the office at anytime for further help as they desire. Morbid obesity 02/26/2023 Assessment & Plan (09/18/2024 11:56 PM CDT): Discussed the patient's BMI. The BMI is above average. BMI management plan is completed. BMI Follow-up includes: nutrition counseling, exercise counseling and education provided. Patient has an obesity-related condition (not limited to: hypertension, obstructive sleep apnea, osteoarthritis, hyperlipidemia, diabetes, etc.). Therefore, morbid obesity may be documented for patients with a BMI between 35.00-39.99. Assessment & Plan (09/21/2023 10:56 PM CDT): Discussed the patient's BMI. The BMI is above average. BMI management plan is completed. BMI Follow-up includes: nutrition counseling, exercise counseling and education provided. Patient has an obesity-related condition (not limited to: hypertension, obstructive sleep apnea, osteoarthritis, hyperlipidemia, diabetes, etc.). Therefore, morbid obesity may be documented for patients with a BMI between 35.00-39.99. Assessment & Plan (03/04/2023 9:50 PM CDT): Discussed the patient's BMI. The BMI is above average. BMI management plan is completed. BMI Follow-up includes: nutrition counseling, exercise counseling and education provided. Patient has an obesity-related condition (not limited to: hypertension, obstructive sleep apnea, osteoarthritis, hyperlipidemia, diabetes, etc.). Therefore, morbid obesity may be documented for patients with a BMI between 35.00-39.99. BMI 39.0-39.9,adult 12/30/2022 Assessment & Plan (09/07/2024 11:52 AM CDT): Discussed the patient's BMI. The BMI is above average. BMI management plan is completed. BMI Follow-up includes: nutrition counseling, exercise counseling and education provided. Assessment & Plan (12/31/2022 12:07 AM CDT): Discussed the patient's BMI. The BMI is above average. BMI management plan is completed. BMI Follow-up includes: nutrition counseling, exercise counseling and education provided. Mixed hyperlipidemia 01/20/2022 Assessment & Plan (09/18/2024 11:56 PM CDT): Encouraged patient to follow low fat/low chol diet like the Mediterranean diet. Increase good fats in the diet. Increase exercise. Monitor labs as needed. Assessment & Plan (03/04/2023 9:50 PM CDT): Encouraged patient to follow low fat/low chol diet like the Mediterranean diet. Increase good fats in the diet. Increase exercise. Monitor labs as needed. Her last LDL was very high. Reviewed the independent risk factor associated with an elevated LDL. Was almost 9 months ago so will recheck again. If still high will discuss consideration of a statin. Reviewed the risks benefits alternatives side effects and proper use of statins. Assessment & Plan (01/20/2022 6:40 PM CDT): Encouraged patient to follow low fat/low chol diet like the Mediterranean diet. Increase good fats in the diet. Increase exercise. Monitor labs as needed. Start Crestor 20 mg start Co Q10. Reviewed risks benefits alternatives side effects and proper use. Recheck labs in 4-6 months. Anxiety 01/12/2022 Assessment & Plan (09/18/2024 11:55 PM CDT): Depression anxiety symptoms have been stable with the Lexapro 20. Continue to monitor Assessment & Plan (09/21/2023 10:55 PM CDT): Continue with Lexapro 20 and Xanax. Patient states she feels like a dog really does help as comfort and is another modality of treatment for her anxiety and depression. Letter provided to support this. Discussed with her the difference between a service animal in a support animal and she verbalized understanding that the letter is for an emotional support animal. Assessment & Plan (01/12/2022 9:17 PM CDT): Continue Lexapro as she has seen some improvement. Still some breakthrough symptoms. Will provide Xanax to use sparingly for these episodes. Vitamin D deficiency 12/17/2021 Assessment & Plan (09/18/2024 11:55 PM CDT): Supplement Assessment & Plan (09/21/2023 10:56 PM CDT): Supplement Assessment & Plan (01/20/2022 6:38 PM CDT): Supplement Assessment & Plan (01/12/2022 9:15 PM CDT): Supplement Assessment & Plan (12/17/2021 1:27 PM CDT): Patient has not been able to regularly afford the vitamin-D supplement. Will recheck level. May consider prescriptive 50,000 use pending the results. Moderate episode of recurrent major depressive d isorder 12/17/2021 Assessment & Plan (09/18/2024 11:55 PM CDT): Depression anxiety symptoms have been stable with the Lexapro 20. Continue to monitor Assessment & Plan (09/21/2023 10:55 PM CDT): Continue with Lexapro 20 and Xanax. Patient states she feels like a dog really does help as comfort and is another modality of treatment for her anxiety and depression. Letter provided to support this. Discussed with her the difference between a service animal in a support animal and she verbalized understanding that the letter is for an emotional support animal. Assessment & Plan (03/04/2023 9:49 PM CDT): Patient with depression anxiety. Continue the Lexapro 20. Has Xanax available to use as needed but advised if continues to require more may need to add a 2nd daily medication. She is in agreement with the plan. Assessment & Plan (01/20/2022 6:38 PM CDT): Continue with Lexapro 20 mg and Xanax p.r.n. Assessment & Plan (01/12/2022 9:17 PM CDT): Continue Lexapro as she has seen some improvement. Still some breakthrough symptoms. Will provide Xanax to use sparingly for these episodes. Assessment & Plan (12/17/2021 1:27 PM CDT): Stable with the Lexapro 20 mg. Has been doing well on it with symptoms well controlled. Strongly encouraged her to continue with counseling. Low vitamin B12 level 12/17/2021 Assessment & Plan (01/12/2022 9:15 PM CDT): Monitor labs Assessment & Plan (12/17/2021 1:30 PM CDT): Check labs Polyarthralgia 12/17/2021 Assessment & Plan (01/12/2022 9:15 PM CDT): Will check JOY and due to joint pain Assessment & Plan (12/17/2021 1:31 PM CDT): Patient has noted increased poly arthralgias over the last few years. She has a family history of rheumatoid arthritis with her mother and a sister that has pernicious anemia. Will check JOY . Irregular menstrual cycle 12/17/2021 Assessment & Plan (12/17/2021 1:31 PM CDT): History of irregular menses. She is currently fairly regular skipping at the most once a couple times a year. She is currently not sexually active so does not need control. Will do PCOS workup to determine if there is an underlying reason. Hirsutism 12/17/2021 Assessment & Plan (01/12/2022 9:16 PM CDT): Hirsutism has been present. Will do PCOS workup as her cycles have been irregular and she has difficulty losing weight Assessment & Plan (12/17/2021 1:32 PM CDT): Patient has noted hirsutism for decades. She was told she had PCOS when she was a teenager but does not sound like has ever been actively treated. Will check PCOS labs and determine proper treatment upon review. Have her follow-up in 3-4 weeks did develop plan. Fatigue 12/17/2021 Assessment & Plan (03/04/2023 9:49 PM CDT): Probably multifactorial. Check labs and followup to re-evaluate Assessment & Plan (01/12/2022 9:16 PM CDT): Probably multifactorial. Check labs and followup to re-evaluate Assessment & Plan (12/17/2021 1:32 PM CDT): Probably multifactorial. Check labs and followup to re-evaluate Resolved Problems Problem Noted Date Diagnosed Date Resolved Date Annual physical exam 09/18/2024 025 Assessment & Plan (09/18/2024 11:56 PM CDT): Encouraged healthy lifestyle, good nutrition and exercise. Encouraged Calcium and Vitamin D and weight bearing exercise for bone health. Reviewed immunizations Reviewed age appropirate screenings. Neck pain 09/18/2024 02/13/2025 Assessment & Plan (09/18/2024 11:57 PM CDT): Patient has noted increased neck pain headaches and teeth grinding. Difficult to know the underlying cause but suspicion for sleep apnea she is grinding her teeth which could lead to the headaches in the neck pain. Recommend starting with a sleep study. Will refer to sleep Medicine. Will start with physical therapy to try to help with the symptoms. Use an anti-inflammatory as needed heat to the area as needed. Follow up pending the sleep study and therapy and follow up in 8-12 weeks to reassess or sooner for any other problems or concerns Snoring 09/18/2024 02/13/2025 Assessment & Plan (09/30/2024 3:54 PM CDT): The patient presents with snoring and daytime fatigue. Per her request, I have recommended home sleep test and she will follow up here in 4 months. Assessment & Plan (09/18/2024 11:57 PM CDT): Patient has noted increased neck pain headaches and teeth grinding. Difficult to know the underlying cause but suspicion for sleep apnea she is grinding her teeth which could lead to the headaches in the neck pain. Recommend starting with a sleep study. Will refer to sleep Medicine. Will start with physical therapy to try to help with the symptoms. Use an anti-inflammatory as needed heat to the area as needed. Follow up pending the sleep study and therapy and follow up in 8-12 weeks to reassess or sooner for any other problems or concerns Daytime sleepiness 09/18/2024 Assessment & Plan (09/18/2024 11:57 PM CDT): Patient has noted increased neck pain headaches and teeth grinding. Difficult to know the underlying cause but suspicion for sleep apnea she is grinding her teeth which could lead to the headaches in the neck pain. Recommend starting with a sleep study. Will refer to sleep Medicine. Will start with physical therapy to try to help with the symptoms. Use an anti-inflammatory as needed heat to the area as needed. Follow up pending the sleep study and therapy and follow up in 8-12 weeks to reassess or sooner for any other problems or concerns Facial rash 09/21/2023 02/13/2025 Assessment & Plan (09/21/2023 10:57 PM CDT): Patient's packaging engineer notes facial rash is concerned it could be associated with lupus. Will check an JOY. Also discussed rosacea. If it is negative could consider a topical antibiotic. Other forms of systemic lupus erythematosus 09/12/2023 09/21/2023 Dizziness 09/12/2023 02/13/2025 Precordial chest pain 06/13/20232024 Tobacco dependence 06/13/2023 Chest wall pain 03/04/2023 09/18/2024 Assessment & Plan (03/04/2023 9:47 PM CDT): Patient was diagnosed with costochondritis at the ER. Encouraged anti- inflammatories, topical pain medications like Voltaren and or lidocaine patches. She is to continue to monitor closely Cough 03/03/2023 09/18/2024 BMI 37.0-37.9, adult 02/26/202309/16/ 024 Assessment & Plan (02/26/2023 10:20 AM CDT): Discussed the patient's BMI. The BMI is above average. BMI management plan is completed. BMI Follow-up includes: nutrition counseling, exercise counseling and education provided. Acute non-recurrent pansinusitis 12/31/2022 09/18/2024 Assessment & Plan (12/31/2022 12:07 AM CDT): Start antibiotic, antihistamine (Claritin OR Zyrtec), Mucinex 12hour and Steroid nasal spray (Flonase). Push fluids. Rest. Supportive care. If sxs worsen or don\'t improve, pt is to followup in the office. Discussed multiple antibiotic allergies -- Thinks she remembers taking Keflex. Reviewed 1/3 of pts with allergies to PNC can react to cephalosporin. She has multiple allergies and did not get a response to Zpac. Willingto try. Reviewed s/s of drug reaction. If notes any reaction she is to stop the Omnicef immediately take a Benadryl and call the office. She is in agreement with the plan Morbid obesity 12/30/2022 02/26/2023 Assessment & Plan (12/31/2022 12:07 AM CDT): Discussed the patient's BMI. The BMI is above average. BMI management plan is completed. BMI Follow-up includes: nutrition counseling, exercise counseling and education provided. Patient has an obesity-related condition (not limited to: hypertension, obstructive sleep apnea, osteoarthritis, hyperlipidemia, diabetes, etc.). Therefore, morbid obesity may be documented for patients with a BMI between 35.00-39.99. COVID 02/18/2022 09/18/2024 Assessment & Plan (03/10/2022 8:04 PM CDT): ---Remain off work thru02/28 RTW on 03/01--- Let pt know the newest CDC recommendations are as follows: If positive COVID: Stay home for at least 5 days and isolate from others in your home. Wear a well-fitted mask if you must be around others in your home. End isolation after 5 full days if you are fever-free for 24 hours (without the use of fever-reducing medication) and your symptoms are improving. Wear a well-fitted mask for 10 full days any time you are around others inside your home or in public. Do not go to places where you are unable to wear a mask. Avoid travel Avoid being around people who are at high risk Discussed mAb and Paxlovid as treatment options. She has chosen to monitor Treat sxs with Tylenol, Cough/cold medication otc and add VitD 5,000IU daily and Zinc 50mg daily. Monitor sxs and call or go to the ER if has any of the following: --trouble breathing --persistent pain or pressure in the chest --new confusion --inability to wake or stay awake -- bluish lips or face Assessment & Plan (02/18/2022 1:39 PM CDT): Let pt know the newest CDC recommendations are as follows: If positive COVID: Stay home for at least 5 days and isolate from others in your home. Wear a well-fitted mask if you must be around others in your home. End isolation after 5 full days if you are fever-free for 24 hours (without the use of fever-reducing medication) and your symptoms are improving. Wear a well-fitted mask for 10 full days any time you are around others inside your home or in public. Do not go to places where you are unable to wear a mask. Avoid travel Avoid being around people who are at high risk Discussed MAb and Paxlovid -- she wants to monitor sxs to see if they continue to remain mild. Treat sxs with Tylenol, Cough/cold medication otc and add VitD 5,000IU daily and Zinc 50mg daily. Monitor sxs and call or go to the ER if has any of the following: --trouble breathing --persistent pain or pressure in the chest --new confusion --inability to wake or stay awake -- bluish lips or face Diabetes mellitus screening 01/12/2022 09/18/2024 Assessment & Plan (03/04/2023 9:49 PM CDT): Check labs Assessment & Plan (01/12/2022 9:16 PM CDT): Check labs Epigastric pain 01/12/2022 09/18/2024 Assessment & Plan (09/21/2023 10:56 PM CDT): Patient is having acid reflux type symptoms. Continue working with Cardiology but would recommend starting omeprazole to see if this decreases some of the substernal symptoms she is experiencing Assessment & Plan (01/20/2022 6:39 PM CDT): Discussed GERD at length including anatomy, behavioral changes (raise HOB, meal timings), dietary changes and medication options. Reviewed risks, benefits alternatives, side effects and proper use. Followup if sxs worsen or has hematochezia or hematemeis. Start PPI Assessment & Plan (01/12/2022 9:16 PM CDT): Suspect her midepigastric pain and burning is related to reflux. Will start with omeprazole. Discussed GERD at length including anatomy, behavioral changes (raise HOB, meal timings), dietary changes and medication options. Reviewed risks, benefits alternatives, side effects and proper use. Followup if sxs worsen or has hematochezia or hematemeis. Morbid obesity 12/17/2021 12/30/2022 Assessment & Plan (01/20/2022 6:39 PM CDT): Discussed the patient's BMI. The BMI is above average. BMI management plan is completed. BMI Follow-up includes: nutrition counseling, exercise counseling and education provided. Patient has an obesity-related condition (not limited to: hypertension, obstructive sleep apnea, osteoarthritis, hyperlipidemia, diabetes, etc.). Therefore, morbid obesity may be documented for patients with a BMI between 35.00-39.99. Assessment & Plan (12/17/2021 1:31 PM CDT): Discussed the patient's BMI. The BMI is above average. BMI management plan is completed. BMI Follow-up includes: nutrition counseling, exercise counseling and education provided. Lipid screening 12/17/2021 03/04/2023 Assessment & Plan (01/12/2022 9:16 PM CDT): Check labs Assessment & Plan (12/17/2021 1:32 PM CDT): Check labs BMI 38.0-38.9,adult 12/17/2021 09/19/19 25 Assessment & Plan (09/21/2023 10:56 PM CDT): Discussed the patient's BMI. The BMI is above average. BMI management plan is completed. BMI Follow-up includes: nutrition counseling, exercise counseling and education provided. Assessment & Plan (01/20/2022 6:39 PM CDT): Discussed the patient's BMI. The BMI is above average. BMI management plan is completed. BMI Follow-up includes: nutrition counseling, exercise counseling and education provided. Assessment & Plan (12/17/2021 1:32 PM CDT): Discussed the patient's BMI. The BMI is above average. BMI management plan is completed. BMI Follow-up includes: nutrition counseling, exercise counseling and education provided. Encounters Date Type Department Care Team Description 04/25/2025 Orders Only [address] [place] [phone] Lori Oneill PA Neck mass (Primary Dx) 04/19/[address] [place] [phone] Lori Oneill PA 04/19/2025 Results Follow-Up [address] [place] [address] [place] [phone] Lori Oneill PA Comprehensive metabolic panel, Mononucleosis screen, CBC with auto differential, Additional followed-up results: 2 04/18/2025 1:25 PM CDT Lab [address] [address] Sore throat 04/18/2025 11:30 AM CDT Office Visit [facility] [address] [place] [address] Lori Oneill PA Sore throat (Primary Dx); Cervical lymphadenopathy; Obesity (BMI 30-39.9); BMI 36.0-36.9,adult 04/06/2025 3:00 PM CDT Office Visit [facility] [address] [place] [phone] Valery Singleton, JORDAN Acute viral pharyngitis (Primary Dx); Bilateral otitis media with effusion 03/10/2025 7:15 PM CDT Office Visit [facility] [address] [place] [phone] Layla Comer, JORDAN Non-recurrent acute suppurative otitis media of right ear without spontaneous rupture of tympanic membrane (Primary Dx); Viral respiratory infection; Antibiotic-induced yeast infection from Last 3 Months Immunizations Immunization Administration Dates Next Due DTP 11/18/1989, 6,12/01/1984,02/24 Influenza, Trivalent, Preser vative Free, Intramuscular 03/12/2016 Influenza, Unspecified 06/23/2024(Deferr ed: Patient Refused),07/24/2022(Deferred: Patient Refused),06/23/2022(Deferred: Patient Refused),07/24/2021(Deferred: Patient Refused) MMR 01/26/1993 OPV 11/18/1989, 6,12/01/1984,02/24 Rho (D) Immune Globulin, IV or IM 02/10/2016 Tdap 03/12/2016 Surgical History Surgery Date Site/Laterality Comments TONSILLECTOMY AND ADENOIDECTOMY 03/23/2015 CHOLECYSTECTOMY 2018 ABDOMINAL SURGERY 2019 laporoscopy for endometriosis diagnosis (negative) BARIATRIC SURGERY 2008 lap band removed 2009 Medical History Medical History Date Comments Anxiety Depression OCD (obsessive compulsive disorder) GERD (gastroesophageal reflux disease) Menstrual problem 1997 Dysmenorrhea 1998 Migraines 1997 Family History Medical History Relation Name Comments Alcohol abuse Father Abdifatah Cancer Father Abdifatah Hearing loss Father Abdifatah Heart disease Father Abdifatah Hypotension Father Abdifatah Liver disease Father Abdifatah Cancer Father's Sister Aniyah Arthritis Mother Risa COPD Mother Risa Depression Mother Risa Diabetes Mother Risa Glaucoma Mother Risa Heart attack Mother Risa Heart disease Mother Risa Hyperlipidemia Mother Risa Hypertension Mother Risa Obesity Mother Risa Rheum arthritis Mother Risa Thyroid disease Mother Risa Cancer Paternal Grandmother Bobbye Alcohol abuse Sister 1 Jennie Depression Sister 1 Jennie Drug abuse Sister 1 Jennie Pernicious anemia Sister 1 Jennie Learning disabilities Sister 2 Margie Miscarriages / Stillbirths Sister 2 Margie Relation Name Status Comments Father Abdifatah Alive Father's Sister Aniyah Alive Mother Risa Alive Paternal Grandmother Bobbye Alive Sister 1 Jennie Alive Sister 2 Margie Alive Social History Tobacco Use Types Packs/Day Years Used Date Smoking Tobacco: Former Cigarettes 1 24 1 - 03/2021 Smokeless Tobacco: Never Tobacco Cessation:Counseling Given: Not Answered Alcohol Use Standard Drinks/Week Comments Never 0 (1 standard drink = 0.6 oz pur e alcohol) PHQ-2 Answer Date Recorded PHQ-2 Total Score (If total score is 3 or more points, staff should administer the PHQ-9) 1 04/18/2025 AUDIT-C Answer Date Recorded Q1: How often do you have a drink containing alcohol? Never 04/18/2025 Q2: How many drinks containi ng alcohol do you have on a typical day when you are drinking? Patient does not drink Q3: How often do you have si x or more drinks on one occasion? Never 04/18/2025 Comments No Sex and Gender Information Value Date Recorded Sex Assigned at Not on file Legal Sex Female 11:38 AM [employer]IFICIAL [employer]AR[employer] Gender Identity Not on file Sexual Orientation Not on file Last Filed Vital Signs Vital Sign Reading Time Taken Comments Blood Pressure 134/72 04/18/2025 11:44 AM CDT Pulse 71 04/18/2025 11:44 AM CDT Temperature 37.1 C (98.8 F) 04/18/2025 11:44 AM CDT Respiratory Rate 18 04/06/2025 2:44 PM CDT Oxygen Saturation 97% 04/18/2025 11:44 AM CDT Inhaled Oxygen Concentration - - Weight 97.5 kg (215 lb) 04/18/2025 11:44 AM CDT Height 162.6 cm (5' 4) 04/18/2025 11:44 AM CDT Body Mass Index 36.9 04/18/2025 11:44 AM CDT Plan of Treatment Health Maintenance Due Date Last Done Comments Cervical Cancer Screening 1983 Hepatitis C Screening 1983 Varicella Vaccines (1 of 2 - 13+ 2-dose series) 11/24/1996 Hepatitis B Screening 11/24/2001 HPV Vaccines (1 - 3-dose SCDM series) 11/24/2010 Influenza Vaccine (#1) 2025 03/12/2016 Regular Well Visit/Exam 18-64 09/07/2025 09/07/2024 Breast Cancer Screening-Mammogram 12/10/2025 12/10/2024 DTaP/Tdap/Td Vaccine (6 - Td or Tdap) 03/12/2026 03/12/2016, 11/18/1989, 09/30/1985, Additional history exists Depression Screening 04/18/2026 04/18/2025, 01/26/2025, 09/07/2024, Additional history exists Pneumococcal vaccine <65 Aged Out No longer eligible based on patient's age to complete this topic Procedures Procedure Name Priority Date/Time Associated Diagnosis Comments EGFR Routine 04/18/2025 1:32 PM CDT Sore throat DIFFERENTIAL AUTO Routine 04/18/2025 1:3 2 PM CDT Sore throat CBC WITH AUTO DIFFERENTIAL Routine 04/18/2025 1:32 PM CDT Sore throat MONONUCLEOSIS SCREEN Routine 04/18/2025 1:32 PM CDT Sore throat COMPREHENSIVE METABOLIC PANEL Routine 04/18/2025 1:32 PM CDT Sore throat POC INFLUENZA A/B, COVID-19 ANTIGEN Routine 04/06/2025 3:12 PM CDT Acute viral pharyngitis POCT RAPID STREP Routine 04/06/2025 3:11 PM CDT Acute viral pharyngitis POCT RAPID STREP Routine 03/10/2025 7:31 PM CDT Non-recurrent acute suppurative otitis media of right ear without spontaneous rupture of tympanic membrane POC INFLUENZA A/B, COVID-19 ANTIGEN Routine 03/10/2025 7:31 PM CDT Non-recurrent acute suppurative otitis media of right ear without spontaneous rupture of tympanic membrane HM MAMMOGRAPHY Routine 12/10/2024 10:28 AM CDT from Last 3 Months or Most Recently Relevant to Health Maintenance Results * eGFR (04/18/2025 1:32 PM CDT) Pathologist [facility] eGFR >90 >=60 mL/min/1. 73 m2 Comment: Interpretive Data Reference Interval Normal >/= 90 mL/min/1.73m2 Mildly decreased* 60 - 89 mL/min/1.73m2 Mildly to moderately decreased 45 - 59 mL/min/1.73m2 Moderately to severely decreased 30 - 44 mL/min/1.73m2 Severely decreased 15 - 29 mL/min/1.73m2 Kidney Failure < 15 mL/min/1.73m2 *Relative to young adult level Estimated glomerular filtration rate is determined by the 2020 CKD-EPI equation recommended by the National Kidney Foundation (A Unifying Approach to GFR Estimation: Recommendations of the NKF-ASK Task Force on Reassessing the Inclusion of Race in Diagnosing Kidney Disease, JASN 202). The CKD-EPI equation should not be used for patients with unstable renal function and has not been validated in children and those over 70. Current interpretive data was last reviewed 2021. Blood 04/18/2025 1:32 PM CDT 04/18/2025 6:19 PM CDT us Lori PLATA LAB BLOOD ORDERABLES Final Result DANNIE [address] [facility] Department [place] [address] * (ABNORMAL) Differential, auto (04/18/2025 1:32 PM CDT) Neutrophil abs 5.72 1.50 - 6.50 K/cumm Imm gran abs 0.13(H) 0.00 - 0.10 K/cumm [facility] Lymphocyte abs 2.42 0.80 - 3.30 K/cumm [facility] Monocyte abs 0.43 0.20 - 0.80 K/cumm [facility] Eosinophil abs 0.14 0.00 - 0.50 K/cumm [facility] Basophil abs 0.07 0.00 - 0.10 K/cumm [facility] Neutrophil pct 64.1 % [facility] Comment: Interpretive Data Percent cell count reference ranges are not reported, since discordance with absolute values may lead to misinterpretation of CBC data. Current Interpretive Data was last revised on 2017. Imm gran pct 1.5 % [facility] Comment: Interpretive Data Percent cell count reference ranges are not reported, since discordance with absolute values may lead to misinterpretation of CBC data. Current Interpretive Data was last revised on 2017. Lymphocyte pct 27.2 % [facility] Comment: Interpretive Data Percent cell count reference ranges are not reported, since discordance with absolute values may lead to misinterpretation of CBC data. Current Interpretive Data was last revised on 2017. Monocyte pct 4.8 % [facility] Comment: Interpretive Data Percent cell count reference ranges are not reported, since discordance with absolute values may lead to misinterpretation of CBC data. Current Interpretive Data was last revised on 2017. Eosinophil pct 1.6 % [facility] Comment: Interpretive Data Percent cell count reference ranges are not reported, since discordance with absolute values may lead to misinterpretation of CBC data. Current Interpretive Data was last revised on 2017. Basophil pct 0.8 % [facility] Comment: Interpretive Data Percent cell count reference ranges are not reported, since discordance with absolute values may lead to misinterpretation of CBC data. Current Interpretive Data was last revised on 2017. Blood 04/18/2025 1:32 PM CDT 04/18/2025 6:19 PM CDT Lori PLATA LAB BLOOD ORDERABLES Final Result Performing Organization Address City/[facility] Co de Phone Number [address] [place] [address] * (ABNORMAL) CBC with auto differential (04/18/2025 1:32 PM CDT) [facility] WBC 8.91 3.80 - 9.90 K/cumm Hgb 13.0 11.9 - 15.5 g/dL [facility] Hct 39.8 35.6 - 45.5 % [facility] Plt 409(H) 150 - 400 K/cumm [facility] MPV 9.4 9.1 - 12.3 fL [facility] RBC 4.49 3.90 - 5.20 M/cumm [facility] MCV 88.6 81.3 - 96.4 fL [facility] MCH 29.0 27.1 - 33.3 pg [facility] MCHC 32.7 32.3 - 35.7 g/dL [facility] RDW CV 13.2 11.1 - 14.9 % [facility] RDW SD 42.9 35.7 - 48.1 fL [facility] NRBC abs 0.00 0.00 - 0.01 K/cumm [facility] Blood 04/18/2025 1:3 2 PM CDT 04/18/2025 6:19 PM CDT Lori PLATA LAB BLOOD ORDERABLES Final Result Performing Organization Address City/[facility] Co de Phone Number [address] [place] [address] * Mononucleosis screen (04/18/2025 1:32 PM CDT) [facility] Screen Negative Negative Comment: Interpretive Data Heterophile antibodies are short-lived. Therefore, a positive test is consistent with recent infection. Heterophile antibodies fail to develop in approximately 15% of adults and in a higher percentage of children. Vince-Lloyd virus specific serology (IgG and IgM) testing should be performed to exclude disease in patients with a negative antibody test. Current interpretive data was last revised on 2022. Blood 04/18/2025 1:32 PM CDT 04/18/2025 6:20 PM CDT Lori PLATA LAB BLOOD ORDERABLES Final Result [facility] [address] [facility] Department [place] [address] * (ABNORMAL) Comprehensive metabolic panel (04/18/2025 1:32 PM CDT) Sodium 140 135 - 145 mmol/L Potassium, pl 4.2 3.3 - 4.9 mmol/L [facility] Chloride 103 97 - 110 mmol/L [facility] CO2 27 22 - 32 mmol/L [facility] Anion gap 10 2 - 15 mmol/L [facility] BUN 9 6 - 25 mg/dL [facility] Creatinine 0.67 0.60 - 1.10 mg/dL [facility] Glucose 128 70 - 199 mg/dL [facility] Comment: Interpretive Data Fasting glucose >/= 126 mg/dl is diagnostic for diabetes. Fasting is defined as no caloric intake for at least 8 hours. Fasting glucose between 100 mg/dl to 125 mg/dl is diagnostic of prediabetes. In a patient with classic symptoms of hyperglycemia or hyperglycemic crisis, a random glucose >/= 200 mg/dl is diagnostic for diabetes. In the absence of unequivocal hyperglycemia, results should be confirmed by repeat testing. The classification and Diagnosis of Diabetes Diabetes Care 202; 46: S19-S40. Current interpretive data was last revised 2022. Calcium 9.5 8.5 - 10.3 mg/dL [facility] Bilirubin, total 0.4 0.1 - 1.2 mg/dL [facility] Protein, pl 7.0 6.5 - 8.5 g/dL [facility] Albumin 4.2 3.5 - 5.0 g/dL [facility] Alk phos 147(H) 40 - 130 Units/L [facility] ALT 25 7 - 45 Units/L [facility] AST 23 10 - 45 Units/L [facility] Blood 04/18/2025 1:32 PM CDT 04/18/2025 6:19 PM CDT Lori PLATA LAB BLOOD ORDERABLES Final Result DANNIE [address] [facility] Department [place] [address] * POC Influenza A/B, COVID-19 antigen (04/06/2025 3:12 PM CDT) Pathologist [facility] Influenza A Ag, POC Negative Negative [facility] Influenza B Ag, POC Negative Negative [facility] COVID-19 Ag POC Presumptive Negative Presumptive Negative, Invalid [facility] Nasal 04/06/2025 3:12 PM CDT Valery Singleton MACHINE BUNCH MAKER POINT OF CARE TEST ORDERABLES Final Result Performing Organization Address [facility] Co de Phone Number [facility] [address] [place] [address] * POCT rapid strep A (04/06/2025 3:11 PM CDT) Pathologist [facility] Rapid Strep A, POC Negative Negative Swab 04/06/2025 3:11 PM CDT Valery Singleton MACHINE BUNCH MAKER POINT OF CARE TEST ORDERABLES Final Result * POC Influenza A/B, COVID-19 antigen (03/10/2025 7:31 PM CDT) Pathologist [facility] Influenza A Ag, POC Negative Negative [facility] Influenza B Ag, POC Negative Negative [facility] COVID-19 Ag POC Presumptive Negative Presumptive Negative, Invalid [facility] Nasal 03/10/2025 7:31 PM CDT Layla Comer NP POINT OF CARE TEST ORDERABLES Final Result [facility] [place] [address], [facility] * POCT rapid strep A (03/10/2025 7:31 PM CDT) Rapid Strep A, POC Negative Negative Swab 03/10/2025 7:31 PM CDT Layla Comer NP POINT OF CARE TEST ORDERABLES Final Result * HM MAMMOGRAPHY (12/10/2024 10:28 AM CDT) Mammography Normal Impressions Debbie Louise MA - 12/10/2024 10:28 AM CDT There is no mammographic evidence of malignancy. A 1 year screening mammogram is recommended. Bi-Rads Category 1: Negative Historical Provider HEALTH MAINTENANCE Edited Result - Final from Last 3 Months or Most Recently Relevant to Health Maintenance Insurance [facility] Care Teams Security Flex Utility Officer Relationship Specialty Start Date End Date Lori Oneill PA [address] [facility] [address] [place] [address] PCP - General Internal Medicine 11/07/21
--- OUTSIDE RECORDS SUMMARY | 2025-04-29 10:40 | XMS_ITS | Clinical Summary ---
Author Organization [facility] Address [address] [place] [id number] Care Team Providers Care Switchboard Installer Name Role Phone None, Provider MD Primary Care Provider Unavaila ble Allergies Active Allergy Reactions Criticality Noted Date Comments Amoxicillin-Pot Clavulanate Hives 11/07/19 24 Ciprofloxacin Hives 11/07/2023 Doxycycline Swelling 11/07/2023 Penicillins Headache 11/07/2023 Sulfa Antibiotics Hives 11/07/2023 Medications No known medications Social History Tobacco Use Types Packs/Day Years Used Date Smoking Tobacco: Former Cigarettes Smokeless Tobacco: Never Tobacco Cessation:Counseling Given: Not Answered Alcohol Use Standard Drinks/Week Comments Never 0 (1 standard drink = 0.6 oz pur e alcohol) Comments No Sex and Gender Information Value Date Recorded Sex Assigned at Not on file Legal Sex Female 6:00 PM CDT Gender Identity Not on file Sexual Orientation Not on file Last Filed Vital Signs Vital Sign Reading Time Taken Comments Blood Pressure 111/88 11/07/2023 6:18 PM CDT Pulse 75 11/07/2023 6:18 PM CDT Temperature 36.2 C (97.1 F) 11/07/2023 6:18 PM CDT Respiratory Rate 18 11/07/2023 6:18 PM CDT Oxygen Saturation 97% 11/07/2023 6:18 PM CDT Inhaled Oxygen Concentration - - Weight 99.8 kg (220 lb) 11/07/2023 6:17 PM CDT Height 162.6 cm (5' 4) 11/07/2023 6:17 PM CDT Body Mass Index 37.76 11/07/2023 6:17 PM CDT Plan of Treatment Health Maintenance Due Date Last Done Comments Annual Physical 11/24/1986 Hepatitis C 11/24/2001 Hepatitis B Vaccines (1 of 3 - 19+ 3-dose series) 11/24/2002 HPV Vaccines (1 - 3-dose SCDM series) 11/24/2010 Cervical Cancer Screening Pap with HPV Testing (Age 30 to 64) Every 5 Years 11/24/2013 Mammogram Screening 2023 COVID-19 Vaccine ( - 2024- season) 2025 Influenza Adult (#1) 2025 03/12/2016 Cervical Cancer Screening Pap Smear (Age 30 to 64) Every 3 Years 08/01/2025 08/01/2022 Cervical Cancer Screening with HPV 08/01/2025 DTaP, Tdap and Td Vaccines (6 - Td or Tdap) 03/12/2026 03/12/2016, 11/18/1989, 09/30/1985, Additional history exists Hepatitis A Vaccines Aged Out No long er eligible based on patient's age to complete this topic Meningococcal B Vaccine Aged Out No l onger eligible based on patient's age to complete this topic Meningococcal Vaccine Aged Out No abi angel eligible based on patient's age to complete this topic Pneumococcal Vaccine: Pediatrics (0 to 5 Years) and At-Risk Patients (6 to 49 Years) Aged Out No longer eligible based on patient's age to complete this topic RSV Immunizations Under 20 Months Aged Out No longer eligible based on patient's age to complete this topic Insurance #[address] [place] [address] ANTHONY Care Teams Switchboard Installer Relationship Specialty Start Date End Date None, Provider, MD PCP - General UNKNOWN PHYSICIAN SPECIALTY 11/07/23
--- OUTSIDE RECORDS SUMMARY | 2025-04-29 10:41 | XMS_ITS | Data Portability ---
Author Organization [facility] Address [address] [place] [address] Care Team Providers Care Client Analyst Name Role Phone MUSA VILLASENOR Primary Care Provider RAÚL VACA Primary Care Provider Assessment Encounter Date Assessment Date Assessment LastModified by Organization Details LastModified Time 12/02/2020 12/02/2020 Annual gynecological exam performed. Patient will come back in a year unless there are new symptoms. Not available 11/29/2020 16:14:54 08/01/2022 08/01/2022 Annual gynecological exam performed. Patient will come back in a year unless there are new symptoms. [email or web address] Not available 08/01/2022 12:23:10 04/27/2024 04/27/2024 Annual gynecological exam performed. Patient will come back in a year unless there are new symptoms. Greater than 30 minutes was spent in total outside of annual wellness care between discussion with the patient, examination, and coordination of care. [email or web address] Not available 04/29/2024 22:58:04 Plan of Treatment Reminders Order Date Submit Date Provider Last Modified By Organization Details Last Modified Time Details Appointments None recorded. Lab hbcab (hepatitis B core Ab) igm, serum 2022 023 [facility] (Lab), [address], [place], [address], 22:46:14 HBsAg (hepatitis B surface Ag), serum 2022 023 [facility] (Lab), [address], [place], [address], 3 22:46:12 hepatitis C virus Ab, serum 2022 023 [facility] (Lab), [address], [place], [address], 3 22:46:12 unlisted lab - HIV 1/2 antigen/ant ibody, reflex confirmatio n 2022 023 [facility] (Lab), [address], [place], [address], 3 22:46:13 RPR (rapid plasma reagin), serum 2022 023 [facility] (Lab), [address], [place], [address], 3 22:46:13 beta-HCG, quantitativ e, serum or plasma 2022 023 [facility] (Lab), [address], [place], [address], 3 22:46:12 hCG, qualitative , serum 2020 021 [facility] (Lab), [address], [place], [address], 1 04:58:51 thyrotropin , quant, blood 2020 021 [facility] (Lab), [address], [place], [address], 1 04:58:49 prolactin, serum 2020 021 [facility] (Lab), [address], [place], [address], 1 04:58:50 CMP, serum or plasma 2020 021 [facility], [address], [place], [address], 1 17:55:36 lipid panel, serum 2020 [facility], [address], [place], [address], 12:33:38 CBC w/ auto diff 2020 021 [facility], [address], [place], [address], 17:55:37 TSH, serum or plasma 2020 021 [facility], [address], [place], [address], 17:19:00 vitamin D, 25-hydroxy, total, serum 2020 021 [facility], [address], [place], [address], 17:19:01 HbA1c (hemoglobin A1c), blood 2020 021 [facility], [address], [place], [address], 02:19:05 Referral None recorded. Procedures None recorded. Surgeries None recorded. Imaging US, pelvis 2024 025 [email or web address] [place], [address], [address], [place], [address], 5 21:37:16 US, transvagina l 2024 025 [email or web address], [address], [place], [address], 5 21:37:16 MAMMO, diagnostic, digital, bilateral - Bilateral breast pain outer aspect but it is more intense on the left. 2020 021 [facility], [place], [address], 11:42:10 Medication Orders None recorded. Patient TargetsNo targets recorded. Patient InstructionsNo instructions recorded. Reason for Referral None Reported. Results Created Date Observation Date Name Description Value Unit Range Abnormal Flag Note LastModifiedBy Organization Detail LastModifiedTime 12/03/1912/02/2020 urina lysis , dipst ick Leukocytes normal Not Available Dominga krishnan [address], [place], [address], 12/02/2020 10:17:25 12/03/19 21 12/02/2020 urina lysis , dipst ick Nitrite normal Not Available [facility] [address], [place], [address], 12/02/2020 10:17:25 12/03/19 21 12/02/2020 urina lysis , dipst ick Urobilinogen normal Not Available [facility] matthew [address], [place], [address], 12/02/2020 10:17:25 12/03/1912/02/2020 urina lysis , dipst ick Protein normal Not Available [facility] [address], [place], [address], 12/02/2020 10:17:25 12/03/19 21 12/02/2020 urina lysis , dipst ick pH normal Not Available [facility] [address], [place], [address], 12/02/2020 10:17:25 12/03/19 21 12/02/2020 urina lysis , dipst ick Specific [place] normal Not Available [facility] [address], [place], [address], 12/02/2020 10:17:25 12/03/19 21 12/02/2020 urina lysis , dipst ick Ketone normal Not Available [facility] [address], [place], [address], 12/02/2020 10:17:25 12/03/19 21 12/02/2020 urina lysis , dipst ick Bilirubin normal Not Available [facility] valeria [address], [place], [address], 12/02/2020 10:17:25 12/03/19 21 12/02/2020 urina lysis , dipst ick Glucose normal Not Available [facility] [address], [place], [address], 12/02/2020 10:17:25 12/03/19 21 12/02/2020 urina lysis , dipst ick Appearance normal Not Available 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 Locat ion: [place] Patho logy Recei pal: 12/05 0106 First Scree n: Hinne rs, Roberta , [place] Patho logis t: Latrell Motley MD Speci men: Scree sara Pap - Image d, Cervi x STATE MENT OF ADEQU ACY: Satis facto ry for evalu ation Trans forma tion zone compo nent prese nt FINAL DIAGN OSIS: Negat julien for Intra epith elial Lesio n or Malfouzia mcintoshcy (NIL) Infla mmato ry Cell El es (incl udes typic al repai r) Elect addis vaughn shantanu d by Latrell Motley MD on 2020 at 3:31 PM ----- ----- ----- ----- ----- ----- ----- ----- ----- ----- ----- ----- ----- ----- ----- ----- ----- ---- HPV RESUL TS: HPV mRNA E6/E7 : No HPV mRNA Detec carlos manuel NOTE: This high risk HPV mRNA assay detec ts fourt een high- risk HPV types (16, 18, 31, 33, 35, 39, 45, 51, 52, 56, 58, 59, 66, 68) witho ut diffe renti ation . CHART ABLE COMME NT: Note: This speci men was revie wed by a Cytot echno logis t and/o r Patho logis t (as indic ated in this repor t) after evalu ation using the Thinp rep Imagi ng Syste m. CLINI JOHN INFOR MATIO N: Menst rual Statu s: LMP (if appli cable ): 021 Clini john Histo ry/Pr eviou s Pap: Type of Neopl gini (if appli cable ): Other Histo ry: Hormo gianluca (if appli cable ): PAP EDUCA HORACIO L NOTE: The Pap Test is a scree sara test with an inher ent false negat julien rate. Liqui d-bas e sampl ing may decre ase, but will not elimi harjit, false negat julien resul ts. A negat julien resul t does not precl ude the prese nce and/o r devel opmen t of disea se, since the prese nce of abnor mal cells in the sampl e depen ds on the locat ion of the lesio n and sampl ing techn ique. Harrison nued regul ar scree sara is the best metho d of cance r preve ntion . If repor carlos manuel cytol ogic findi ng do not corre late with physi john and/o r histo rical findi ngs, furth er inves tigat ion is recom bessie d, as clini kevin avila nted. Not Available [facility] (Lab) [address], [place], [address], 12/06/2020 16:33:47 01/31/20 21 01/30/2021 CBC W/DIF F WBC 8.0 10'3/ uL 3.6-10 .2 Not Available [facility] (Lab) [address], [place], [address], 01/31/2021 02:19:04 01/31/20 21 01/30/2021 CBC W/DIF F RBC 4.60 10'6/ uL (based on docume nted legal sex) 4.10-5 .30 Not Available [facility] (Lab) [address], [place], [address], 01/31/2021 02:19:04 01/31/20 21 01/30/2021 CBC W/DIF F HGB 13.6 g/dL (based on docume nted legal sex) 11.9-1 5.8 Not Available [facility] (Lab) [address] [place], [address], 01/31/2021 02:19:04 01/31/20 21 01/30/2021 CBC W/DIF F HCT 43.1 % (based on docume nted legal sex) 37.4-4 8.3 Not Available [facility] (Lab) [address] [place], [address], 01/31/2021 02:19:04 01/31/20 21 01/30/2021 CBC W/DIF F MCV 93.0 fL 82.0-9 9.0 Not Available [facility] (Lab) [address], [place], [address], 01/31/2021 02:19:04 01/31/20 21 01/30/2021 CBC W/DIF F MCH 29.0 pg 27.0-3 3.0 Not Available [facility] (Lab) [address], [place], [address], 01/31/2021 02:19:04 01/31/20 21 01/30/2021 CBC W/DIF F MCHC 32.0 g/dL 32.0-3 6.0 Not Available [facility] (Lab) [address], [place], [address], 01/31/2021 02:19:04 01/31/20 21 01/30/2021 CBC W/DIF F RDW 13.0 % 11.0-1 5.0 Not Available [facility] (Lab) [address], [place], [address], 01/31/2021 02:19:04 01/31/20 21 01/30/2021 CBC W/DIF F plt 456 10'3/ uL 150-45 0 high Not Available [facility] (Lab) [address], [place], [address], 01/31/2021 02:19:04 01/31/20 21 01/30/2021 CBC W/DIF F MPV 9.4 fL 9.8-12 .7 low Not Available [facility] (Lab) [address], [place], [address], 01/31/2021 02:19:04 01/31/20 21 01/30/2021 CBC W/DIF F NRBC's 0.00 % 0 Not Available [facility] (Lab) [address], [place], [address], 01/31/2021 02:19:04 01/31/20 21 01/30/2021 CBC W/DIF F absolute NRBCs 0.0 10'3/ uL 0 Not Available [facility] (Lab) [address], [place], [address], 01/31/2021 02:19:04 01/31/20 21 01/30/2021 CBC W/DIF F neutrophils 61.0 % 37.0-7 2.0 Not Available [facility] (Lab) [address], [place], [address], 01/31/2021 02:19:04 01/31/20 21 01/30/2021 CBC W/DIF F lymphocytes 30.0 % 16.0-4 8.0 Not Available [facility] (Lab) [address], [place], [address], 01/31/2021 02:19:04 01/31/20 21 01/30/2021 CBC W/DIF F monocytes 6.0 % 4.0-14 .0 Not Available [facility] (Lab) [address], [place], [address], 01/31/2021 02:19:04 01/31/20 21 01/30/2021 CBC W/DIF F eosinophils 1.0 % 0.0-9. 0 Not Available [facility] (Lab) [address], [place], [address], 01/31/2021 02:19:04 01/31/20 21 01/30/2021 CBC W/DIF F basophils 1.0 % 0.0-2. 0 Not Available [facility] (Lab) [address] [place], [address], 01/31/2021 02:19:04 01/31/20 21 01/30/2021 CBC W/DIF F immature granulocytes 1.0 % no define d refere nce range Not Available [facility] (Lab) [address], [place], [address], 01/31/2021 02:19:04 01/31/20 21 01/30/2021 CBC W/DIF F absolute neutrophils 4.9 10'3/ uL 1.1-6. 0 Not Available [facility] (Lab) [address], [place], [address], 01/31/2021 02:19:04 01/31/20 21 01/30/2021 CBC W/DIF F absolute lymphocytes 2.4 10'3/ uL 0.7-3. 4 Not Available [facility] (Lab) [address], [place], [address], 01/31/2021 02:19:04 01/31/20 21 01/30/2021 CBC W/DIF F absolute monocytes 0.5 10'3/ uL 0.3-1. 0 Not Available [facility] (Lab) [address], [place], [address], 01/31/2021 02:19:04 01/31/20 21 01/30/2021 CBC W/DIF F absolute eosinophils 0.1 10'3/ uL 0.0-0. 6 Not Available [facility] (Lab) [address], [place], [address], 01/31/2021 02:19:04 01/31/20 21 01/30/2021 CBC W/DIF F absolute basophils 0.0 10'3/ uL 0.0-0. 1 Not Available [facility] (Lab) [address], [place], [address], 01/31/2021 02:19:04 01/31/20 21 01/30/2021 CBC W/DIF F absolute immature granulocytes 0.10 10'3/ uL 0.00-0 .10 2020 12:30 AM: P indic ates parti al arias ts on a panel have been relea sed. Addit ional resul ts will follo w. 2020 12:30 AM: This resul t has been final verif ied. No addit ional or motley ed resul ts are expec carlos manuel. Not Available [facility] (Lab) [address], [place], [address], 01/31/2021 02:19:04 01/31/20 21 01/30/2021 TSH, REFLE X FREE T4 TSH 1.13 uIU/m L 0.30-5 .33 Not Available [facility] (Lab) [address], [place], [address], 01/31/2021 02:19:05 01/31/2001/30/2021 HEMOG LOBIN A1C hemoglobin A1C 5.6 % 0-5.6 The Ameri can Diabe cammie Assoc iatio n recom mends that a prima ry goal of thera py brigitte d be a HBA1C of < 7% and that physi cians shoul d reeva luate the treat ment regim en in patie nts with HBA1C value s consi stent ly > 8%. <5.7% Radha l 5.7 - 6.4% Incre ased risk for diabe cammie >=6.5 % Diagn ostic of diabe cammie <7.0% Goal of thera py >8.0% Actio n sugge sted Not Available [facility] (Lab) [address], [place], [address], 01/31/2021 02:19:05 01/31/2001/30/2021 LIPID PANEL ,AMA (LDL- CALC) total cholesterol 261 mg/dL 0-199 high Not Available [facility] (Lab) [address] [place], [address], 01/31/2021 02:19:05 01/31/2001/30/2021 LIPID PANEL ,AMA (LDL- CALC) triglyceride s 426 mg/dL 0.00-1 50.00 high NCEP Refer ence Value s for Trigl yceri carmen: Radha l: <150 mg/dL Borde rline High: 150 - 199 mg/dL High: 200 - 499 mg/dL Very High: >/= 500 mg/dL Not Available [facility] (Lab) [address], [place], [address], 01/31/2021 02:19:05 01/31/20 21 01/30/2021 LIPID PANEL ,AMA (LDL- CALC) HDL cholesterol 35 mg/dL 23-92 Not Available [facility] (Lab) [address], [place], [address], 01/31/2021 02:19:05 01/31/20 21 01/30/2021 LIPID PANEL ,AMA (LDL- CALC) LDL cholesterol . Trigl yceri carmen >400; Unabl e to calcu late LDL. Cutof f value s recom bessie d by the Natio nal Wanda stero l Educa tion Progr am: OZZY ABLE: Wanda stero l <200 mg/dL LDL <100 mg/dL BORDE RLINE : Wanda stero l 200-2 39 mg/dL LDL 101-1 59 mg/dL HIGHE R RISK: Wanda stero l >240 mg/dL LDL >160 mg/dL , HDL <40 mg/dL Not Available [facility] (Lab) [address], [place], [address], 01/31/2021 02:19:05 01/31/2001/30/2021 LIPID PANEL ,AMA (LDL- CALC) non-HDL cholesterol 226 mg/dL no refere nce range A reaso nable goal for non-H DL wanda stero l is one that is 30 mg/dL highe r than the LDL wanda stero l goal. Not Available [facility] (Lab) [address], [place], [address], 01/31/2021 02:19:05 01/31/2001/30/2021 LIPID PANEL ,AMA (LDL- CALC) chol/HDL ratio 7.5 . 0.0-5. 0 high Not Available [facility] (Lab) [address], [place], [address], 01/31/2021 02:19:05 01/31/20 21 01/30/2021 CMP(C OMPRE HENSI VE METAB OLIC PANEL ) sodium 139 mmol/ L 136-14 5 Not Available [facility] (Lab) [address], [place], [address], 01/31/2021 02:19:06 01/31/20 21 01/30/2021 CMP(C OMPRE HENSI VE METAB OLIC PANEL ) potassium 5.2 mmol/ L 3.5-5. 1 high Not Available [facility] (Lab) [address], [place], [address], 01/31/2021 02:19:06 01/31/20 21 01/30/2021 CMP(C OMPRE HENSI VE METAB OLIC PANEL ) chloride 104 mmol/ L 98-107 Not Available [facility] (Lab) [address], [place], [address], 01/31/2021 02:19:06 01/31/20 21 01/30/2021 CMP(C OMPRE HENSI VE METAB OLIC PANEL ) carbon dioxide 28 mmol/ L 21-31 Not Available [facility] (Lab) [address], [place], [address], 01/31/2021 02:19:06 01/31/20 21 01/30/2021 CMP(C OMPRE HENSI VE METAB OLIC PANEL ) anion gap 7 mmol/ L 4-13 Not Available [facility] (Lab) [address], [place], [address], 01/31/2021 02:19:06 01/31/20 21 01/30/2021 CMP(C OMPRE HENSI VE METAB OLIC PANEL ) blood urea nitrogen 11 mg/dL 7-25 Not Available [facility] (Lab) [address], [place], [address], 01/31/2021 02:19:06 01/31/20 21 01/30/2021 CMP(C OMPRE HENSI VE METAB OLIC PANEL ) creatinine 0.70 mg/dL 0.60-1 .30 Not Available [facility] (Lab) [address], [place], [address], 01/31/2021 02:19:06 01/31/20 21 01/30/2021 CMP(C OMPRE HENSI VE METAB OLIC PANEL ) GFR () 114 mL/mi n/1.7 3_m2 60-300 Not Available [facility] (Lab) [address], [place], [address], 01/31/2021 02:19:06 01/31/20 21 01/30/2021 CMP(C OMPRE HENSI VE METAB OLIC PANEL ) GFR (others) 94 mL/mi n/1.7 3_m2 60-300 Not Available [facility] (Lab) [address], [place], [address], 01/31/2021 02:19:06 01/31/20 21 01/30/2021 CMP(C OMPRE HENSI VE METAB OLIC PANEL ) calcium 10.1 mg/dL 8.6-10 .2 Not Available [facility] (Lab) [address], [place], [address], 01/31/2021 02:19:06 01/31/20 21 01/30/2021 CMP(C OMPRE HENSI VE METAB OLIC PANEL ) glucose 71 mg/dL 70-100 Not Available [facility] (Lab) [address], [place], [address], 01/31/2021 02:19:06 01/31/20 21 01/30/2021 CMP(C OMPRE HENSI VE METAB OLIC PANEL ) protein, total 6.6 g/dL 6.4-8. 3 Not Available [facility] (Lab) [address], [place], [address], 01/31/2021 02:19:06 01/31/20 21 01/30/2021 CMP(C OMPRE HENSI VE METAB OLIC PANEL ) albumin 4.6 g/dL 3.5-5. 0 Not Available [facility] (Lab) [address], [place], [address], 01/31/2021 02:19:06 01/31/20 21 01/30/2021 CMP(C OMPRE HENSI VE METAB OLIC PANEL ) ALT 28 units /L 9-43 Not Available [facility] (Lab) [address], [place], [address], 01/31/2021 02:19:06 01/31/20 21 01/30/2021 CMP(C OMPRE HENSI VE METAB OLIC PANEL ) alkaline phosphatase 130 units /L 34-104 high Not Available [facility] (Lab) [address], [place], [address], 01/31/2021 02:19:06 01/31/20 21 01/30/2021 CMP(C OMPRE HENSI VE METAB OLIC PANEL ) AST 15 units /L 13-39 Not Available [facility] (Lab) [address], [place], [address], 01/31/2021 02:19:06 01/31/20 21 01/30/2021 CMP(C OMPRE HENSI VE METAB OLIC PANEL ) bilirubin, total 0.5 mg/dL 0.2-1. 2 GFR([place] Ameri can) is repor carlos manuel as 21% great er than GFR(O ther) . The use of race in kidne y funct ion estim ating equat ions is no longe r recom bessie d and may resul t in overe stima tion. In the near futur e an appro ach that disre gards race will be imple mente d. Not Available [facility] (Lab) [address], [place], [address], 01/31/2021 02:19:06 01/31/20 21 01/30/2021 VITAM IN D, 25-OH (TOTA L D2/D3 ) vitamin D, 25-hydroxy, total 16.7 NG/mL 30-80 low NOTE: Defic iency : <20 ng/mL Insuf ficie ncy: 20-29 ng/mL Optim um Level : 30-80 ng/mL Possi ble Toxic ity: >80 ng/mL Most patie nts with toxic ity have level s >150 ng/mL . Not Available [facility] (Lab) [address], [place], [address], 01/31/2021 02:19:06 06/13/20 21 06/13/2021 TSH, PREGN DEV, REFLE X FREE T4 TSH, 1.68 uIU/m L Refer ence Range : First Trime ster 0.26 - 2.66 uIU/m L Secon d Trime ster0 .55 - 2.73 uIU/m L Third Trime ster 0.43 - 2.91 uIU/m L Not Available [facility] (Lab) [address] [place], [address], 06/14/2021 04:58:49 06/13/20 21 06/13/2021 VITAM IN D, 25-OH (TOTA L D2/D3 ) vitamin D, 25-hydroxy, total 36.0 NG/mL 30-80 NOTE: Defic iency : <20 ng/mL Insuf ficie ncy: 20-29 ng/mL Optim um Level : 30-80 ng/mL Possi ble Toxic ity: >80 ng/mL Most patie nts with toxic ity have level s >150 ng/mL . Not Available [facility] (Lab) [address], [place], [address], 06/14/2021 04:58:50 06/13/20 21 06/13/2021 PROLA CTIN prolactin, total 10.60 NG/mL 4.79-2 3.30 This assay was perfo rmed using [employer] ratio n reage nts and test kits. Value s obtai heladio with other assay metho ds or kits canno t be used inter motley eably . Not Available [facility] (Lab) [address], [place], [address], 06/14/2021 04:58:50 06/13/20 21 06/13/2021 HCG(H UMAN CHORI ONIC GONAD OTROP IN), QUALI TATIV E SERUM bhcg, qualitative, blood NEGATI VE negati ve Not Available [facility] (Lab) [address], [place], [address], 06/14/2021 04:58:50 08/01/19 23 08/01/2022 HEPAT ITIS C ANTIB PAWEL SCREE N, REFLE X TO CONFI RMATI ON hepatitis C antibody Non-re active non-re active Antib odies to HCV Not Detec carlos manuel, does not exclu de the possi bilit y of expos ure to HCV. Not Available [facility] (Lab) [address], [place], [address], 08/02/2022 22:46:12 08/01/1908/01/2022 BHCG, QUANT ITATI VE B-HCG <0.2 mIU/m L This assay was perfo rmed using [employer] reage nts and test kits. Value s obtai heladio with other assay metho ds or kits canno t be used inter motley eably . Refer ence Range s: Non-p regna nt, preme nopau yvette women : 0.0-5 .3 mIU/m L Postm enopa usal women : 0.0-7 .0 mIU/m L Radha l Pregn dev: Gesta horacio l Age bHCG Conc. - mIU/m L 3 Weeks 5.8 - 71.7 4 Weeks 9.5 - 750 5 Weeks 217-7 138 6 Weeks 158 - 31,79 5 7 Weeks 3,697 - 162,5 63 8 Weeks 32,06 5 - 149,5 71 9 Weeks 63,80 3 - 151,4 10 10 Weeks 46,50 9 - 186,9 77 12 Weeks 27,83 2 - 210,6 12 14 Weeks 13,95 0 - 62,53 0 15 Weeks 12,03 9 - 70,97 1 16 Weeks 9,040 - 56,45 1 17 Weeks 8,175 - 55,86 8 18 Weeks 8,099 - 58,17 6 Not Available [facility] (Lab) [address], [place], [address], 08/02/2022 22:46:12 08/01/19 23 08/01/2022 HEPAT ITIS B SURFA CE ANTIG EN hepatitis B surface antigen Non-re active non-re active This assay was perfo rmed using [employer] reage nts and test kits. Value s obtai heladio with other assay metho ds or kits canno t be used inter motley eably . Not Available [facility] (Lab) [address], [place], [address], 08/02/2022 22:46:12 08/01/19 23 08/01/2022 HIV 1/2 ANTIG EN/AN TIBOD Y, REFLE X CONFI RMATI ON HIV antigen/anti body Nonrea ctive nonrea ctive HIV-1 antig en and HIV-1 /HIV- 2 antib odies were not detec carlos manuel. No labor atory evide nce of HIV infec tion. Not Available [facility] (Lab) [address], [place], [address], 08/02/2022 22:46:13 08/01/19 23 08/01/2022 RPR SCREE N/REF VERONICA TITER /FTA RPR screen Nonrea ctive nonrea ctive Not Available [facility] (Lab) [address], [place], [address], 08/02/2022 22:46:13 08/01/19 23 08/01/2022 HEPAT ITIS B CORE, IGM hepatitis B core IgM antibody Negati ve negati ve Not Available [facility] (Lab) [address], [place], [address], 08/02/2022 22:46:14 08/01/19 23 08/01/2022 IMAGE GUIDE D PAP AND HPV REGAR DLESS image guided Pap, HPV regardless of Pap result SEE RESULT S BELOW CASE REPOR T: Cytol ogy Gynec ologi john Repor t Case: [id number] Autho musa jeniffer Provi niurka: Darryl Gaytan Colle cted: 08/01 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 Elect addis vaughn shantanu d by Kim Bello ret, CT on 2022 at 3:11 PM ----- ----- ----- ----- ----- ----- ----- ----- ----- ----- ----- ----- ----- ----- ----- ----- ----- ---- HPV RESUL TS: HPV mRNA E6/E7 : No HPV mRNA Detec carlos manuel NOTE: This high risk HPV mRNA assay detec ts fourt een high- risk HPV types (16, 18, 31, 33, 35, 39, 45, 51, 52, 56, 58, 59, 66, 68) witho ut diffe renti ation . COMME NT: Note: This speci men was revie wed by a Cytot echno logis t and/o r Patho logis t (as indic ated in this repor t) after evalu ation using the Thinp rep Imagi ng Syste m. CLINI JOHN INFOR MATIO N: Menst rual Statu s: LMP (if appli cable ): Clini john Histo ry/Pr eviou s Pap: Type of Neopl gini (if appli cable ): Signi fican t Clini john Findi ngs: Other Histo ry: Hormo gianluca (if appli cable ): PAP EDUCA HORACIO L NOTE: The Pap Test is a scree sara test with an inher ent false negat julien rate. Liqui d-bas ed sampl ing may decre ase, but will not elimi harjit, false negat julien resul ts. A negat julien resul t does not precl ude the prese nce and/o r devel opmen t of disea se, since the prese nce of abnor mal cells in the sampl e depen ds on the locat ion of the lesio n and sampl ing techn ique. Harrison nued regul ar scree sara is the best metho d of cance r preve ntion . If repor carlos manuel cytol ogic findi ng do not corre late with physi john and/o r histo rical findi ngs, furth er inves tigat ion is recom bessie d, as clini kevin warra nted. Not Available [facility] (Lab) [address] [place], [address], 08/05/2022 16:14:15 04/27/20 24 04/27/2024 WOMEN 'S HEALT H SWAB PLUS, NIKOLAY bacterial vaginosis (bv), tma Negati ve negati ve Not Available [facility] (Lab) [address] [place], [address], 04/29/2024 07:00:57 04/27/20 24 04/27/2024 WOMEN 'S HEALT H SWAB PLUS, NIKOLAY jonel species, tma Negati ve negati ve Not Available [facility] (Lab) [address] [place], [address], 04/29/2024 07:00:57 04/27/20 24 04/27/2024 WOMEN 'S HEALT H SWAB PLUS, NIKOLAY jonel glabrata, tma Negati ve negati ve Not Available [facility] (Lab) [address] [place], [address], 04/29/2024 07:00:57 04/27/20 24 04/27/2024 WOMEN 'S HEALT H SWAB PLUS, NIKOLAY trichomonas vaginalis, tma Negati ve negati ve Not Available [facility] (Lab) [address] [facility], [place], [address], 04/29/2024 07:00:57 04/27/20 24 04/27/2024 WOMEN 'S HEALT H SWAB PLUS, NIKOLAY chlamydia trachomatis, PCR Negati ve negati ve Not Available [facility] (Lab) [address] [place], [address], 04/29/2024 07:00:57 04/27/20 24 04/27/2024 [facility]AY neisseria gonorrhoeae, PCR Negati ve negati ve Bacte rial vagin osis detec ts the follo wing bacte kaycee assoc iated with bacte rial vagin osis (BV): Lacto bacil miguel angel (L. gasse ri, L. crisp atus and L. jense saroj), Gardn erell a vagin francis, and Atopo bium vagin ae. A singl e quali tativ e resul t is repor carlos manuel base on instr ument softw are to deter mine BV posit julien or negat julien statu s. The Radha da speci es group tests for C. albic ans, C. tropi calis , C. parap myke is, C. dubli niens is. Testi ng is perfo rmed using the Trans cript ion Media carlos manuel Ampli ficat ion metho d. Tests for Radha da glabr cj, Trich omona s vagin francis, Chlam ydia trach omati s, and Neiss eria gonor rhoea e are also inclu ded in this panel . Not Available [facility] (Lab) [address] [place], [address], 04/29/2024 07:00:57 04/27/20 24 04/27/2024 CULTU RE: URINE result report SEE RESULT S BELOW Test: Cultu re: Urine Speci men Sourc e: Urine - Clean Catch Speci men Type: Urine Speci men Date: 2023 1042 Resul t Date: 2023 0557 Resul t Statu s: Final resul t Abnor mal: No Resul ting Lab: [facility] [address] [facility] [address] Tel: CULTU RE ----- ----- ----- --- No growt h in 1 day (dete ction level of 10,00 0 colon ies / ml.) Not Available [facility] (Lab) [address] [facility], [place], [address], 04/29/2024 07:00:58 04/27/20 24 04/27/2024 IMAGE GUIDE D PAP AND HPV REGAR DLESS image guided Pap, HPV regardless of Pap result SEE RESULT S BELOW CASE REPOR T: Cytol ogy Gynec ologi john Repor t Case: [id number] Autho rizin g Provi niurka: Les Juarez MD Colle cted: 04/27 1045 Order ing Locat ion: [place] Patho logy Recei pal: 04/28 1142 First Scree n: Helena Cortes, CT Speci men: Screvaleria ruiz Pap - Image d, Cervi x STATE MENT OF ADEQU ACY: Satis facto ry for evalu ation Trans forma tion zone compo nent prese nt ----- ----- ----- ----- ----- ----- ----- ----- ----- ----- ----- ----- ----- ----- ----- ----- ----- ---- FINAL DIAGN OSIS: Negat julien for Intra epith carmen cid or Logan chopra ([facility]) . Princess fournier d by Helena Cortes, CT on 05/04 at 12:25 PM ----- ----- ----- ----- ----- ----- ----- ----- ----- ----- ----- ----- ----- ----- ----- ----- ----- ---- HPV RESUL TS: HPV mRNA E6/E7 : No HPV mRNA Detec carlos manuel NOTE: This high risk HPV mRNA assay detec ts fourt een high- risk HPV types (16, 18, 31, 33, 35, 39, 45, 51, 52, 56, 58, 59, 66, 68) witho ut diffe renti ation . COMME NT: This speci men was revie wed by a Cytot echno logis t and/o r Patho logis t (as indic ated in this repor t) after evalu ation using the Thinp rep Imagi ng Syste m. CLINI JOHN INFOR MATIO N: Menst rual Statu s: LMP (if appli cable ): Clini john Histo ry/Pr eviou s Pap: Type of Neopl gini (if appli cable ): Signi fican t Clini john Findi ngs: Other Histo ry: Hormo gianluca (if appli cable ): PAP EDUCA HORACIO L NOTE: The Pap Test is a scree sara test with an inher ent false negat julien rate. Liqui d-bas ed sampl ing may decre ase, but will not elimi harjit, false negat julien resul ts. A negat julien resul t does not precl ude the prese nce and/o r devel opmen t of disea se, since the prese nce of abnor mal cells in the sampl e depen ds on the locat ion of the lesio n and sampl ing techn ique. Harrison nued regul ar scree sara is the best metho d of cance r preve ntion . If repor carlos manuel cytol ogic findi ng do not corre late with physi john and/o r histo rical findi ngs, furth er inves tigat ion is recom bessie d, as clini kevin avila nted. Not Available [facility] (Lab) [address], [place], [address], 05/04/2024 13:28:34 09/08/19 25 09/07/2024 EMPOW ER MULTI -CANC ER (2+38 ) report summary NEGATI VE normal Negat julien for 40 out of 40 genes . No known patho genic or likel y patho genic varia nts were detec carlos manuel in the 40 genes chelsea zed. Tyrer -Cuzi ck breas t cance r risk asses sment : 23.3% . Not Available [facility] [address], [place], [address], 09/23/2024 20:12:36 09/08/19 25 09/07/2024 EMPOW ER MULTI -CANC ER (2+38 ) footnotes See Notes CLIA: ID #[id number] 2 Test perfo rmed by [employer]. [address] [address] Kylee Ellis, Ph.D. , [facility] , Labor atory Direc tor Not Available [facility] [address], [place], [address], 09/23/2024 20:12:36 09/08/19 25 09/07/2024 US, pelvi s No observ ation record ed. [email or web address] [address], [place], [address], 09/07/2024 13:08:24 09/08/19 25 09/07/2024 US, trans vagin al No observ ation record ed. [email or web address], [place], [address], 09/07/2024 13:08:34 09/08/19 25 09/07/2024 US, pelvi s No observ ation record ed. [facility] [address], [place], [address], 09/08/2024 00:38:00 12/11/19 25 12/10/2024 imagi ng/di agnos tic resul t No observ ation record ed. [address] [place], [place], [address], 12/16/2024 11:14:22 Result Notes Documentation Provider Name and Address Organization Details Recorded Time Lipid Panel, Blood : other labs to be informed also Tamara abdalla, [facility] 02/01/2021 23:44:20 Problems Name Problem SNOMED Code Status Onset Date Resolution Date Notes Provider Name and Address Organization Details Recorded Time Speciali zed medical examinat ion Completed 201311/29/2020 Other specifie d chlamydi al diseases ;Recorde d Elsewher e: No Locat ion: [facility] S ource: EHR Dialysis Chief Equipment Technician robert: N Noriti ce ID: [id number] Bravo lable Time: 01:00:00 PM Kimberly Leonard [facility] 16:16:20 At increase d risk of sexually transmit carlos manuel infectio n [id number] Completed 201311/29/2020 Contact with or exposure to venereal diseases ;Practic e ID: 0001 Kimberly Leonard [facility] 16:15:25 Obesity [id number] Completed 201411/29/2020 Obesity; Recorded Elsewher e: No Locat ion: [facility] S ource: EHR Dialysis Chief Equipment Technician robert: N Noriti ce ID: [id number] Bravo lable Time: 11:00:00 AM Kimberly Leonard [facility] 16:15:58 Speciali zekwasi medical examinat ion Completed 201411/29/2020 Gynecolo gical Examinat ion;João rded Elsewher e: No Locat ion: [facility] S ource: EHR Dialysis Chief Equipment Technician robert: N Practi ce ID: [id number] Bravo lable Time: 11:00:00 AM Kimberly Leonard [facility] 16:16:19 Adult health examinat ion Completed 201411/29/2020 ROUTINE MEDICAL EXAM;Rec orded Elsewher e: No Locat ion: Jeannine reis [facility] S ource: EHR Dialysis Chief Equipment Technician robert: N Practi ce ID: [id number] Bravo lable Time: 11:00:00 AM Kimberly Leonard [facility] 16:15:21 Atypical squamous cells of undeterm ined signific ance on cervical Papanico laou smear [id number] Completed 201411/29/2020 Papanico laou smear of cervix with atypical squamous cells of undeterm ined signific ance (ASC-US) ;Recorde d Elsewher e: No Locat ion: Jeannine reis [facility] S ource: EHR Dialysis Chief Equipment Technician robert: N Practi ce ID: [id number] Bravo lable Time: 04:53:02 PM Kimberly Leonard [facility] 16:15:30 Venereal disease screenin g Completed 201411/29/2020 Screenin g examinat ion for venereal disease; Recorded Elsewher e: No Locat ion: Jeannine reis [facility] S ource: EHR Dialysis Chief Equipment Technician robert: N Practi ce ID: [id number] Bravo lable Time: 02:30:00 PM Kimberly Leonard [facility] 16:16:25 Syphilis test finding [id number] Completed 201511/29/2020 Encounte r for STD screenin g;Record ed Elsewher e: No Locat ion: [facility] S ource: EHR Dialysis Chief Equipment Technician robert: N Practi ce ID: [id number] Bravo lable Time: 02:00:00 PM Kimberly Leonard [facility] 16:16:22 Secondar y amenorrh ea [id number] Completed 201511/29/2020 Secondar y amenorrh ea;Pract ice ID: 0001 Kimberly Leonard [facility] 16:16:10 Pregnanc y detectio n examinat ion Completed 201511/29/2020 Encounte r for pregnanc y test, result positive ;Recorde d Elsewher e: No Locat ion: Jeannine reis [facility] S ource: EHR Dialysis Chief Equipment Technician robert: N Practi ce ID: [id number] Bravo lable Time: 04:15:00 PM Kimberly Leonard [facility], [facility] 1 16:16:01 Pregnanc y, childbir th and puerperi um finding Completed 201511/29/2020 Encounte r for supervis ion of normal first pregnanc y, first trimeste r;Record ed Elsewher e: No Locat ion: Jeannine reis [facility] S ource: EHR Dialysis Chief Equipment Technician robert: N Practi ce ID: [id number] Bravo lable Time: 04:30:00 PM Kimberly Leonard [facility] 16:16:04 Pregnanc y, childbir th and puerperi um finding Completed 201511/29/2020 Encounte r for supervis ion of normal first pregnanc y, second trimeste r;Record ed Elsewher e: No Locat ion: Jeannine reis [facility] S ource: EHR Dialysis Chief Equipment Technician robert: N Noriti ce ID: [id number] Bravo lable Time: 04:30:00 PM Kimberly Leonard [facility], [facility] 16:16:05 Gestatio n period, 20 weeks [id number] Completed 201511/29/2020 20 weeks gestatio n of pregnanc y;Record ed Elsewher e: No Locat ion: Jeannine reis [facility] S ource: EHR Dialysis Chief Equipment Technician robert: N Practi ce ID: [id number] Bravo lable Time: 04:00:00 PM Kimberly Leonard [facility], [facility] 16:15:48 Dizzines s and giddines s [id number] Completed 201511/29/2020 Dizzines s;Record ed Elsewher e: No Locat ion: Kayyericelvira reis [facility] S ource: EHR Dialysis Chief Equipment Technician robert: N Practi ce ID: [id number] Bravo lable Time: 04:00:00 PM Kimberly abdalla [facility] 16:15:41 Clinical finding Completed 201511/29/2020 state, incident al;Pract ice ID: 0001 Kimberly abdalla [facility] 16:15:35 Hemorrho ids [id number] Completed 201511/29/2020 Hemorrho id;Recor ded Elsewher e: No Locat ion: [facility] S ource: EHR Dialysis Chief Equipment Technician robert: N Practi ce ID: [id number] Bravo lable Time: 02:15:00 PM Kimberly Leonard [facility] 16:15:50 Normal pregnanc y in multigra criselda [id number] Completed 201511/29/2020 Encounte r for suprvsn of normal pregnanc y, third trimeste r;Record ed Elsewher e: No Locat ion: [facility] S ource: EHR Dialysis Chief Equipment Technician robert: N Practi ce ID: [id number] Bravo lable Time: 02:00:00 PM Kimberly Leonard [facility] 16:15:57 Lochia finding Completed 201611/29/2020 Encounte r for routine postpart um follow-u p;Record ed Elsewher e: No [facility]: EHR Dialysis Chief Equipment Technician robert: N Practi ce ID: [id number] Bravo lable Time: 08:30:00 AM Kimberly Leonard [facility] 16:15:55 Depressi ve disorder [id number] Completed 201611/29/2020 Major depressi ve disorder , single episode, unspecif ied;João rded Elsewher e: No [facility] S ource: EHR Dialysis Chief Equipment Technician robert: N Practi ce ID: [id number] Bravo lable Time: 08:45:00 AM Kimberly Leonard [facility] 16:15:[address] Concept Completed 201611/29/2020 Encounte r for general gynecolo gical exam w/ abnormal finding; Recorded Elsewher e: No Locat ion: [facility] S ource: EHR Dialysis Chief Equipment Technician robert: N Practi ce ID: [id number] Bravo lable Time: 08:45:00 AM Kimberly Leonard [facility] 16:16:[address] Concept Completed 201611/29/2020 Encntr for general adult medical exam w/o abnormal findings ;Recorde d Elsewher e: No Locat ion: [facility] S ource: EHR Dialysis Chief Equipment Technician robert: N Practi ce ID: [id number] Bravo lable Time: 08:45:00 AM Kimberly Leonard [facility] 16:16:14 Clinical finding Completed 201611/29/2020 Other specifie d disorder s of breast;R ecorded Elsewher e: No Locat ion: [facility] S ource: EHR Dialysis Chief Equipment Technician robert: N Practi ce ID: [id number] Bravo lable Time: 08:45:00 AM Kimberly Leonard [facility] 16:15:31 Procedur e by method Completed 201611/29/2020 Encounte r for other general counseli ng and advice on contrace ption;Re corded Elsewher e: No Locat ion: [facility] S ource: EHR Dialysis Chief Equipment Technician robert: N Practi ce ID: [id number] Bravo lable Time: 08:45:00 AM Kimberly Leonard [facility] 16:15:43 Atypical squamous cells of undeterm ined signific ance on anal Papanico laou smear [id number] Completed 201611/29/2020 Atyp squam cell of undet signfc cyto smr anus (ASC-US) ;Recorde d Elsewher e: No Locat ion: [facility] S ource: EHR Dialysis Chief Equipment Technician robert: N Practi ce ID: [id number] Bravo lable Time: 11:37:09 AM Kimberly Leonard [facility] 16:15:28 Human papillom avirus deoxyrib onucleic acid detected , high risk on cervical specimen [id number] Completed 201611/29/2020 Cervical high risk HPV DNA test positive ;Recorde d Elsewher e: No Locat ion: [facility] S ource: EHR Dialysis Chief Equipment Technician robert: N Practi ce ID: 0001 Bravo lable Time: 11:27:18 AM Kimberly Leonard [facility] 16:15:51 Breast lump [id number] Completed 201611/29/2020 Lump in breast;R ecorded Elsewher e: No Locat ion: [facility] S ource: EHR Dialysis Chief Equipment Technician robert: N Practi ce ID: [id number] Bravo lable Time: 08:45:00 AM Kimberly Leonard [facility] 16:15:33 Clinical finding Completed 201611/29/2020 Presence of (intraut erine) contrace ptive device;R ecorded Elsewher e: No Locat ion: [facility] S ource: EHR Dialysis Chief Equipment Technician robert: N Practi ce ID: [id number] Bravo lable Time: 09:30:00 AM Kimberly Leonard [facility] 16:15:36 Insertio n of intraute rine contrace ptive device Completed 201611/29/2020 Encounte r for insertio n of intraute rine contrace ptive device;R ecorded Elsewher e: No Locat ion: [facility] S ource: EHR Dialysis Chief Equipment Technician robert: N Practi ce ID: [id number] Bravo lable Time: 09:30:00 AM Kimberly Leonard [facility] 16:15:53 Acute vaginiti s [id number] Completed 201611/29/2020 Vaginiti s;Record ed Elsewher e: No Locat ion: Jeannine reis [facility] S ource: EHR Dialysis Chief Equipment Technician robert: N Practi ce ID: [id number] Bravo lable Time: 08:30:00 AM Kimberly Leonard [facility] 16:15:19 Removal of intraute rine device Completed 201611/29/2020 REMOVAL OF IUD;João rded Elsewher e: No Locat ion: Jeannine reis [facility] S ource: EHR Dialysis Chief Equipment Technician robert: N Practi ce ID: [id number] Bravo lable Time: 08:30:00 AM Kimberly Leonard [facility] 16:16:07 Condylom a acuminat um of the anogenit al region [id number] Completed 201611/29/2020 Condylom a acuminat um;Recor ded Elsewher e: No Locat ion: Jeannine reis [facility] S ource: EHR Dialysis Chief Equipment Technician robert: N Practi ce ID: [id number] Bravo lable Time: 09:00:00 AM Kimberly Leonard [facility] 16:15:[address] Concept Completed 201711/29/2020 Encntr for bedspring assembler exam (general ) (routine ) w/o abn findings ;Recorde d Elsewher e: No Locat ion: Jeannine reis [facility] S ource: EHR Dialysis Chief Equipment Technician robert: N Practi ce ID: [id number] Bravo lable Time: 11:30:00 AM Kimberly Leonard [facility] 16:16:17 Screenin g for malignan t neoplasm of cervix Completed 201711/29/2020 Screenin g for malignan t neoplasm s of the cervix;R ecorded Elsewher e: No Locat ion: Kayychon valeria [facility] S ource: EHR Dialysis Chief Equipment Technician robert: N Practi ce ID: [id number] Bravo lable Time: 11:30:00 AM Kimberly Leonard [facility] 16:16:09 Pregnanc y test negative [id number] Completed 201711/29/2020 Encounte r for pregnanc y test, result negative ;Recorde d Elsewher e: No [facility] Dialysis Chief Equipment Technician robert: N Allison ce ID: 0001 Bravo lable Time: 01:15:00 PM Kimberly Leonard [facility] 16:16:02 Pelvic and perineal pain [id number] Completed 201711/29/2020 Pelvic pain;Rec orded Elsewher e: No Locat ion: [facility] S ource: EHR Dialysis Chief Equipment Technician robert: Jose Roberto Cooper ce ID: [id number] Bravo lable Time: 01:15:00 PM Kimberly Leonard [facility] 16:15:59 Evaluati on finding Completed 201711/29/2020 Hematuri a, unspecif ied;João rded Elsewher e: No [facility]: EHR Dialysis Chief Equipment Technician robert: Jose Roberto Cooper ce ID: [id number] Bravo lable Time: 01:15:00 PM Kimberly Leonard [facility] 16:15:44 [facility] [id number] Completed 201711/29/2020 [facility];Record ed Elsewher e: No Locat ion: [facility] S ource: EHR Dialysis Chief Equipment Technician robert: Jose Roberto Julioti ce ID: [id number] Bravo lable Time: 01:15:00 PM Kimberly Leonard [facility] 16:15:24 Urinary tract infectio us disease [id number] Completed 201711/29/2020 UTI;João rded Elsewher e: No Locat ion[facility] N Practi ce ID: 0001 Bravo lable Time: 01:15:00 PM Kimberly abdalla [facility] 16:16:23 Galactor jamshid not associat ed with childbir th [id number] Completed 201811/29/2020 Galactor jamshid not associat ed with childbir th;Recor ded Elsewher e: No Locat ion: Jeannine reis [facility]: N Practi ce ID: 0001 Bravo lable Time: 08:45:00 AM Kimberly abdalla [facility] 16:15:46 Secondar y oligomen orrhea [id number] Completed 201811/29/2020 Secondar y oligomen orrhea;P ractice ID: 0001 Kimberly abdalla [facility] 16:16:12 Disorder of perineum Completed 201811/29/2020 Condylom a acuminat um;Recor ded Elsewher e: No Locat ion: Jeannine re[facility] N Practi ce ID: [id number] Bravo lable Time: 11:30:00 AM Kimberly abdalla [facility] 16:16:27 Problem Notes None recorded. Procedures Surgical History Date Name Laterality Status Provider Name and Address Organization Details Recorded Time 08/01/19 23 Date of Last Pap Smear completed Ting Massey [facility] 04/27/2024 10:15:37 05/26/20 20 Date of Last Mammogram completed Tracy Morse [facility] 06/13/2021 09:57:04 03/22/20 19 diagnostic laparoscopy of female pelvis completed Jannet Barger [facility] 11/30/2020 14:47:05 01/22/20 18 Cholecystectomy completed Jannet Barger [facility] 11/30/2020 14:46:34 09/06/19 17 Colposcopy completed Kimberly Leonard [facility] 11/29/2020 16:17:44 09/06/19 17 Colposcopy completed Jannet [facility] 11/30/2020 14:49:08 01/05/20 15 Colposcopy completed [facility] 11/30/2020 14:49:41 06/23/19 10 removal of gastric band completed [facility] 11/30/2020 14:47:18 06/23/19 08 cryotherapy of genital warts completed [facility] 11/30/2020 14:48:17 06/23/19 08 banding of varix of stomach completed [facility] 11/30/2020 14:47:57 06/23/19 03 excision of lesion of labia completed [facility] 11/30/2020 14:48:33 Colposcopy completed Marleejose roberto Judd [facility] 08/01/2022 12:24:18 Cholecystectomy completed [facility] 08/01/2022 12:24:18 Imaging Results None recorded. Procedure Notes None recorded. Medical Equipment None Reported. Allergies Allergen ID Allergen Name Allergen Category Reaction Reaction Severity Criticality Documentation Date Start Date Code Code System Note Provider Name and Address Organization Details Recorded Time 41639 ciproflox acin medicatio n Not available Not available Not available 06/09/2020 2551 RxNorm Tracy Morse [facility] 10:19:31 30619 amoxicill in medicatio n Not available Not available Not available 04/27/2024 723 RxNorm Ting Massey [facility] 4 10:14:40 43945 Product containin g penicilli n (product) medicatio n Not available Not available Not available 04/27/2024 73192 8001 SNOMED Ting Massey [facility] 4 10:14:46 2655 doxycycli ne Not available Not available Not available Not available 05/01/2020 3640 RxNorm Yusra Franco [facility], [facility] 0 15:47:05 Medications Name Sig Start Date Stop Date Status Note LastModified by Organization Details LastModified Time amoxicill in 500 mg capsule 05/16 completed Not Available Not Available Not Available Mirena 21 mcg/24 hr (up to 8 years) 52 mg intrauter ine device 11/20 completed Prescrib ed Elsewher e: Yes Loca tion: [facility] odify By: amaris muhammad Encoun ter DateTime : 10/31/19 17 09:30:00 AM Not Available Not Available Not Available buspirone 5 mg tablet take 1 tablet by oral route 3 times every day 06/25 completed Prescrib ed Elsewher e: Yes Loca tion: [facility] odify By: Encount er DateTime : 01/07/20 18 11:30:00 AM Not Available Not Available Not Available clindamyc in HCl 300 mg capsule TAKE 1 CAPSULE BY MOUTH THREE TIMES DAILY FOR 7 DAYS active Not Available Not Available No t Available azithromy dg 250 mg tablet TAKE 2 TABLETS BY MOUTH TODAY, THEN TAKE 1 TABLET DAILY FOR 4 DAYS 08/01 completed Not Available Not Available Not Available Prozac 40 mg capsule take 1 capsule by oral route every day in the morning 10/30 completed Prescrib ed Elsewher e: Yes Loca tion: [facility] odify By: amaris z Encoun ter DateTime : 09/13/19 17 08:45:00 AM Not Available Not Available Not Available fluconazo le 150 mg tablet TAKE 1 TABLET (150 MG TOTAL) BY MOUTH ONCE FOR 1 DOSE. 08/01 completed Not Available Not Available Not Available sumatript an 100 mg tablet 1 TABLET BY MOUTH AFTER ONSET OF MIGRAINE MAY REPEAT AFTER 2 HOURS IF HEADACHE RETURNS, MAX 2/DAY 04/27 completed Not Available Not Available Not Available Ativan 1 mg tablet take 1 tablet by oral route 3 times every day as needed 07/17 completed Prescrib ed Elsewher e: No Locat ion: [facility] odify By: carmen trevino DateTime : 02/03/20 15 12:50:16 PM Not Available Not Available Not Available meloxicam 15 mg tablet TAKE 1 TABLET (15 MG TOTAL) BY MOUTH DAILY. active Not Available Not Available No t Available ondansetr on HCl 4 mg tablet TAKE 1 TABLET BY MOUTH EVERY 8 HOURS NEEDED FOR NAUSEA AND VOMITING active Not Available Not Available No t Available propranol ol ER 60 mg capsule,2 4 hr,extend ed release TAKE 1 CAPSULE BY MOUTH AT BEDTIME 05/16 completed Not Available Not Available Not Available fluoxetin e 10 mg tablet take 2 tablet by oral route every day in the morning 08/22 completed Prescrib ed Elsewher e: Yes Loca tion: [facility] odify By: [email or web address] Valeria malone DateTime : 08/11/19 16 02:00:00 PM Not Available Not Available Not Available penicilli n V potassium 500 mg tablet TAKE 1 TABLET BY MOUTH TWICE A DAY 08/01 completed Not Available Not Available Not Available topiramat e 25 mg tablet 06/13 completed Not Available Not Available Not Available metronida zole 500 mg tablet TAKE 1 TABLET BY MOUTH THREE TIMES A DAY 08/01 completed Not Available Not Available Not Available ciproflox acin 500 mg tablet take 1 tablet by oral route every 12 hours 06/04 completed Prescrib ed Elsewher e: No Locat ion: [facility] odify By: amaris chavez DateTime : 06/04/20 18 01:15:00 PM Not Available Not Available Not Available sulfameth oxazole 800 mg-trimet hoprim 160 mg tablet TAKE 1 TABLET BY MOUTH TWICE A DAY FOR 7 DAYS 08/01 completed Not Available Not Available Not Available omeprazol e 40 mg capsule,d elayed release TAKE 1 CAPSULE (40 MG TOTAL) BY MOUTH DAILY. active Not Available Not Available No t Available hydrocort isone 2.5 % topical cream with perineal applicato r INSERT INTO RECTUM 4 TIMES A DAY NEEDED FOR HEMORRHO IDS /RECTAL DISCOMFO RT APPLY TO AFFECTED AREA active Not Available Not Available No t Available alprazola m 0.25 mg tablet TAKE 1 TABLET BY MOUTH NIGHTLY NEEDED FOR ANXIETY. active Not Available Not Available No t Available doxycycli ne monohydra te 100 mg capsule TAKE 1 CAPSULE BY MOUTH TWICE A DAY 05/16 completed Not Available Not Available Not Available Lamictal 25 mg tablet take 2 tablet by oral route 2 times every day 10/30 completed Prescrib ed Elsewher e: No [facility] odify By: amaris muhammad Encoun ter DateTime : 08/23/19 17 03:00:00 PM Not Available Not Available Not Available Prozac 20 mg capsule take 1 capsule by oral route every day in the morning 09/05 completed Prescrib ed Elsewher e: No Locat ion: [facility] odify By: [email or web address] h Daysi ter DateTime : 03/01/20 16 09:05:21 AM Not Available Not Available Not Available promethaz ine 25 mg tablet take 1 tablet by oral route every 4 - 6 hours as needed 07/17 completed Prescrib ed Elsewher e: No Locat ion: [facility] odify By: carmen trevino DateTime : 09/11/19 16 03:45:00 PM Not Available Not Available Not Available Lamictal 100 mg tablet TAKE 1 TABLET BY ORAL ROUTE EVERY BEDTIME 11/20 completed Prescrib ed Elsewher e: No Locat ion: [facility] odify By: amaris muhammad Encoun ter DateTime : 08/23/19 17 03:00:00 PM Not Available Not Available Not Available nicotine 21 mg/24 hr daily transderm al patch 05/16 completed Not Available Not Available Not Available ergocalci ferol (vitamin D2) 1,250 mcg (50,000 unit) capsule TAKE 1 CAPSULE BY MOUTH ONE TIME PER WEEK active Not Available Not Available No t Available Anusol-HC 25 mg rectal supposito ry insert 1 supposit ory by rectal route 2 times every day for 2 weeks 01/30 completed Prescrib ed Elsewher e: No Locat ion: Jeannine reis [facility] odify By: carmen Groves r DateTime : 01/18/20 16 02:15:00 PM Not Available Not Available Not Available Prozac 10 mg capsule take 1 Capsule by oral route every day 01/15 completed Prescrib ed Elsewher e: Yes Loca tion: Jeannine reis [facility] odify By: [email or web address] Encount er DateTime : 01/07/20 18 11:30:00 AM Not Available Not Available Not Available [place] 5 mg-325 mg tablet take 1 tablet by oral route every 4 hours as needed for pain 02/25 completed Prescrib ed Elsewher e: No Locat ion: Jeannine reis [facility] odify By: Encount er DateTime : 06/04/20 18 01:15:00 PM Not Available Not Available Not Available fluticaso ne propionat e 50 mcg/actua tion nasal spray,sadi pension SPRAY 2 SPRAYS INTO EACH NOSTRIL EVERY DAY active Not Available Not Available No t Available Xanax 1 mg tablet take 1 tablet by oral route 3 times every day 12/02 completed Prescrib ed Elsewher e: Yes Loca tion: Jeannine reis [facility] odify By: Encount er DateTime : 01/16/20 19 11:30:00 AM Not Available Not Available Not Available Ativan 2 mg/mL injection solution inject 1 millilit er by intraven ous route 30 minutes before chemothe rapy 02/02 completed Prescrib ed Elsewher e: Yes Loca tion: Rosa valeria [facility] odify By: simona malone DateTime : 12/31/19 15 02:30:00 PM Not Available Not Available Not Available hydroxyzi ne pamoate 25 mg capsule TAKE 1 CAPSULE BY MOUTH TWICE A DAY NEEDED FOR ANXIETY 05/16 completed Not Available Not Available Not Available escitalop chilango 20 mg tablet TAKE 1 TABLET BY MOUTH EVERY DAY active Not Available Not Available No t Available Lexapro 10 mg tablet take 1 tablet by oral route every day 12/02 completed Prescrib ed Elsewher e: Yes Loca tion: Jeannine reis [facility] odify By: Encount er DateTime : 01/16/20 19 11:30:00 AM Not Available Not Available Not Available rosuvasta tin 20 mg tablet TAKE 1 TABLET BY MOUTH EVERY DAY active Not Available Not Available No t Available duloxetin e 20 mg capsule,d elayed release TAKE 1 CAPSULE BY MOUTH EVERY DAY 12/02 completed Not Available Not Available Not Available Xanax 11/29 completed Not Available Not Available Not Available Lexapro 11/29 completed Not Available Not Available Not Available Luvox CR 100 mg capsule,e xtended release take 1 capsule by oral route every day at bedtime 09/12 completed Prescrib ed Elsewher e: Yes Loca tion: Jeannine reis [facility] odify By: carmen Encounte r DateTime : 09/06/19 17 08:30:00 AM Not Available Not Available Not Available Triveen-D uo DHA 29 mg-1 mg-400 mg oral pack take 1 by Oral route every day 07/17 completed Prescrib ed Elsewher e: No Locat ion: Jeannine reis [facility] odify By: carmen Encounte r DateTime : 08/29/19 16 03:23:32 PM Not Available Not Available Not Available cefixime 400 mg capsule active Not Available Not Available Not Available Expecta 28 mg iron-800 mcg-200 mg oral pack 08/22 completed Prescrib ed Elsewher e: Yes Loca tion: Jeannine [facility] odify By: jennie kellyunter DateTime : 07/17/19 17 08:30:00 AM Not Available Not Available Not Available Orilissa 150 mg tablet take 1 tablet by oral route every day at approxim ately the same time each day 01/15 completed Prescrib ed Elsewher e: No Locat ion: Jeannine reis [facility] odify By: [email or web address] Encount er DateTime : 06/25/19 08:45:00 AM Not Available Not Available Not Available Vitals Date Recorded Body height Body mass index (BMI) Body weight Systolic And Diastolic Provider Name and Address Organization Details Last Updated DateTime 08/01/2022 163.83 cm 37.1 kg/m2 08835.88 g 119/78 mm[Hg] Marlee Mercadoen [facility] 08/01/2022 12:23:37 Date Recorded Body height Body mass index (BMI) Body weight Systolic And Diastolic Provider Name and Address Organization Details Last Updated DateTime 12/02/2020 163.83 cm 35.3 kg/m2 38210.81 g 115/73 mm[Hg] Jannet Barger [facility] 12/02/2020 09:53:07 Date Recorded Body height Body mass index (BMI) Body weight Systolic And Diastolic Provider Name and Address Organization Details Last Updated DateTime 04/27/2024 163.83 cm 37.5 kg/m2 336299.51 g 126/82 mm[Hg] Ting Massey [facility] 04/27/2024 10:13:54 Date Recorded Body height Body mass index (BMI) Body weight Systolic And Diastolic Provider Name and Address Organization Details Last Updated DateTime 06/13/2021 163.83 cm 37.5 kg/m2 005031.51 g 120/70 mm[Hg] Tracy Lito [facility] 06/13/2021 09:55:40 Social History Question Answer Notes LastModified by Organizat ion Details LastModified Time Tobacco Smoking Status Former Smoker Charlotte Khalil, [facility] [address], [place], [address], [facility] 08/01/2022 12:37:58 If You Are , What Was Your Level Of Alcohol Consumption Prior To ? None [email or web address] Information not available 08/01/2022 Are You Blind Or Do You Have Difficulty Seeing? No Information not available 11/29/2020 What Is Your Level Of Caffeine Consumption? Occasional Information not available 08/01/2022 How Much Tobacco Do You Chew? None [email or web address] Information not available 08/01/2022 In The 14 Days Before Symptom Onset, Have You Had Close Contact With A Laboratory-confir med COVID-19 While That Case Was Ill? No [email or web address] Information not available 12/02/2020 In The 14 Days Before Symptom Onset, Have You Had Close Contact With A Person Who Is Under Investigation For COVID-19 While That Person Was Ill? No [email or web address] Information not available 12/02/2020 Have You Been To An Area Known To Be High Risk For COVID-19? No [email or web address] Information not available 12/02/2020 Are You Deaf Or Do You Have Serious Difficulty Hearing? No Information not available 11/29/2020 What Type Of Diet Are You Following? REGULAR Information not available 11/29/2020 What Is The Highest Grade Or Level Of School You Have Completed Or The Highest Degree You Have Received? [id number] [email or web address] Information not available 08/01/2022 Are There Any Guns Present In Your Home? No [email or web address] Information not available 08/01/2022 Have You Ever Been Counseled For Unhealthy Alcohol Use? No [email or web address] Information not available 08/01/2022 Do You Use Protection During Sex? No [email or web address] Information not available 04/27/2024 Do You Use Your Seat Belt Or Car Seat Routinely? Yes Information not available 11/29/2020 Do You Have Smoke And Carbon Monoxide Detectors In Your Home? Yes Information not available 11/29/2020 How Much Tobacco Do You Smoke? No [email or web address] Information not available 08/01/2022 Do You Use Sunscreen Routinely? Yes Information not available 11/29/2020 Has Tobacco Cessation Counseling Been Provided? No [email or web address] Information not available 08/01/2022 Have You Used IV Drugs? No Information not available 08/01/2022 Do You Have Difficulty Walking Or Climbing Stairs? No Information not available 08/01/2022 Sex: Unknown Functional Status Question Answer Note LastModified by Organizat ion Details LastModified Time Do you use any illicit or recreational drugs? No Information not available 11/29/2020 Do you or have you ever used any other forms of tobacco or nicotine? Yes [email or web address] Information not available 08/01/2022 What is your level of alcohol consumption? None [email or web address] Information not available 12/02/2020 Do you or have you ever used smokeless tobacco? Never used smokeless tobacco [email or web address] Information not available 08/01/2022 Are you able to walk independently without assistance or assistive devices? [email or web address] Information not available 11/29/2020 Are you able to care for yourself independently? 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 No [email or web address] Information not available 08/01/2022 Do you or have you ever used e-cigarettes or vape? Former user of electronic cigarettes [email or web address] Information not available 08/01/2022 What is your exercise level? Moderate Information not available 11/29/2020 Mental Status Question Answer Note LastModified by Organization D etails LastModified Time Do you feel stressed (tense, restless, nervous, or anxious, or unable to sleep at night)? [id number] [email or web address] Information not available 04/27/2024 Family History Relationship Description Onset Age of this Age Resolved Age Notes LastModified by Organization Details LastModified Time Mother Disorder of thyroid gland Not available 2020 16:26:27 Mother Hypertensive disorder Not available 2020 16:26:35 Mother Hyperlipidem ia Not available 2023 10:08:19 Mother Diabetes mellitus Not available 2020 16:26:58 Mother Polyp of colon [email or web address] Not available 2023 10:08:19 Sister Cyst of ovary [email or web address] Not available 2023 10:08:19 Sister Anemia Not available 02/2021 16:27:22 Sister Polycystic ovary syndrome [email or web address] Not available 2023 10:08:19 Paternal Grandmother Malignant neoplasm of breast 68 [email or web address] Not available 2023 10:08:19 Paternal Grandmother Malignant neoplasm of breast [email or web address] Not available 08/01 12:23:44 Paternal Aunt Malignant neoplasm of breast 61 [email or web address] Not available 2023 10:08:19 Medical History Condition Response Allergies (Food, seasonal, environmental ) N Other Y Breast Cancer N Drug/Latex Allergies/Reactions N Blood Transfusion N Lung Disease N Dermatologic Disorders N Defects or Inherited Disease N Breast Problem N Gestational Diabetes N Hematologic disorders N Anesthesia Complications N History of STI Y Deep Vein Thrombosis N Polycystic ovary syndrome Y Anxiety Disorder Y Autoimmune disease N Arthritis N Infertility N Polyps N Acid Reflux (GERD) N History of abnormal pap Y Cancer N Stroke N Varicosities N Neurologic/Epilepsy N Endometriosis N High Cholesterol Y Headaches N Fibromyalgia N Kidney Disease N Heart Problems N Kidney or Bladder Problems N Thyroid Problems N GI Problems Y Eating Disorder N Anemia N Art (IVF or FET) N Psychiatric Illness Y Ovarian Cancer N Diabetes N Pulmonary (TB, Asthma) N Hepatitis/Liver Disease N No Past Medical History N Eczema N Urinary Tract Infection N Abuse/Domestic Violence N Asthma N Trauma/Violence N Depression/ depression Y Heart Disease N Pre-Eclampsia N Hypertension N Osteoporosis N Thrombophilias N Gynecological History Statement/Question Response Date of Last Mammogram 05/26/2020 Flow Moderate Date of LMP 04/17/2024 N Was last menstrual period normal N STIs/STDs Y Desired Control Method None Abnormal Pap Yes On BCP's at Conception? N HPV Vaccine N Colposcopy 09/05/2016 Current Control Method None Age at First Child 30 Are cycles usually normal N Sexually Active? Y Menses Monthly N Age of first menstrual cycle 12 Date of Last Pap Smear 08/01/2022 Sexual Problems? N LMP Definite N 07/29/2016 Obstetrics History GPAL:G 1 P 1 0 0 1 Type Value Full Term 1 Living 1 Total 1 Past Encounters Encounter ID Performer Location Encounter Start Date Encounter Closed Date Diagnosis/Indication Diagnosis SNOMED-CT Code Diagnosis ICD10 Code Diagnosis IMO Codes Diagnosis Note [id number] Charlotte Khalil [facility] [address] [address] 05/01/2020 15:35:16 05/01/2020 18:00:31 Gynecologic examination 42129267 Z01.419 Take Calcium with Vitamin D 1200mg daily if not receiving in daily diet. It is strongly advised to have an annual flu shot and up can obtain at most pharmacies . If you have not had a TDap shot in the last 10 years you should obtain one as well. Discussed with patient & provided with jackie cid regarding Gardisil vaccine to prevent the 4 strains for HPV that cause cervical cancer if under age 26. Encourage safe sexual practices, to use condoms and limit partners if not already in a monogamous relationsh ip. Do monthly self breast exams. Have mammogram yearly or every other year depending on family history. BRCA testing is now available for patients with strong genetic history of female cancer. If interested contact the office. Engage in daily exercise of low impact aerobic exercise 45-60 minutes 4-5 times weekly. Avoid tobacco and illicit drugs as well as using moderation with alcohol intake less than 1-2 8 oz beverages daily. This lifestyle behavior pattern will lead to less health conditions and longer life span. If BMI greater than 25 weight watchers or dietary consult advised. Patient received above instructio ns, and questions have been answered. If you have any questions please call or respond to this email. Patient was made aware of the patient portal and may obtain a paper copy of today's plan if desired. Anxiety 71189068 F41.9 We agreed to do lab work then she will RTO for f/u of discussion results & how she would like to proceed. We discussed switching SSRI, increasing SSRI during certain weeks of the month that coinside with ovulation/ menses; BC for hormonal regulation . Menorrhagia 023722610 N9 2.0 Will update TVUS & lab work. Hesitant regarding hormonal BC Did not have good luck with multiple methods in the past. [id number] Charlotte Khalil , [facility] [address] [address] 05/16/2020 13:29:16 05/16/2020 14:32:29 Mixed anxiety and depressive disorder [id number] F41.8 She wants to continue Lexapro but still having issues with anxiety on this medication . She is so hesitant to switch method b/c of the trouble she had finding something that works for her at all in the past. Scared to add too/change anything. No harmful thoughts or suicidal ideations. Instead we discussed stress management techniques , Addition of amino acid L-Theanine 200mg in AM & 200mg in PM. Use Natural Calm magnesium nightly low dose for bowel movements/ decrease anxious feelings. Start low as it can cause loose stools. Wants to work on dietary changes, vitamin D deficiency & we also will r/p labs today for high platelets. Might need referral to Hematologi st if still high. Menorrhagia 240474212 N9 2.0 Will update TVUS & lab work. Hesitant regarding hormonal BC Did not have good luck with multiple methods in the past. Body mass index 30+ - obesity 190520495 Z68.30 Dietary apps reviewed ([employer] Filmdemic Pal & NOOM). Just quit smoking. Finding alternativ es to relieve stress. Discussed exercise at home; Yoga, meditation , VANESSA workouts. [id number] Aguilar Summers MD [place] [address],[place] [address] 06/02/2020 14:03:52 06/02/2020 14:23:46 Menorrhagia 535190389 N92.0 [id number] Charlotte Khalil [facility] [address],[place] [address] 06/02/2020 14:35:42 06/02/2020 15:25:46 Menorrhagia 300057395 N92.0 TVUS is wnl Lining is fairly thick but she should be starting cycle anytime now. She does not want to pursue methods of BC or more permanent options at this time. Chooses to monitor for now. Taking multivitam in, B vitamins, D vitamins. Has stopped smoking now for the last 3wks. Still vaping but minimal use. Starting to slowly make nutritiona l changes. We agreed to f/u in 3mos to see how she is doing with these lifestyle changes. Will call her once her CBC results have returned as last result showed elevated platelets. Time spent in visit is a total of 15 mins with at least 50% of visit consisting of counseling and review of plan of care. [id number] Charlotte Khalil [facility] [address],[place] [address] 12/02/2020 09:42:24 12/02/2020 12:57:09 Gynecologic examination 49599586 Z01.419 Take Calcium with Vitamin D 1200mg daily if not receiving in daily diet. It is strongly advised to have an annual flu shot and up can obtain at most pharmacies . If you have not had a TDap shot in the last 10 years you should obtain one as well. Discussed with patient & provided with informatio n regarding Gardisil vaccine to prevent the 4 strains for HPV that cause cervical cancer if under age 26. Encourage safe sexual practices, to use condoms and limit partners if not already in a monogamous relationsh ip. Do monthly self breast exams. Have mammogram yearly or every other year depending on family history. BRCA testing is now available for patients with strong genetic history of female cancer. If interested contact the office. Engage in daily exercise of low impact aerobic exercise 45-60 minutes 4-5 times weekly. Avoid tobacco and illicit drugs as well as using moderation with alcohol intake less than 1-2 8 oz beverages daily. This lifestyle behavior pattern will lead to less health conditions and longer life span. If BMI greater than 25 weight watchers or dietary consult advised. Patient received above instructio ns, and questions have been answered. If you have any questions please call or respond to this email. Patient was made aware of the patient portal and may obtain a paper copy of today's plan if desired. Pap/hpv updated Decline need std screening Started a new job--happy about this change. Adult heal th examination [id number] Z00.00 Update labs this [facility]. [id number] [facility] [address] [address] 06/13/2021 09:48:05 06/13/2021 13:52:12 Mastodynia of bilateral breasts [id number] 3300129 N64.4 Diagnostic stefano and u/s ordered. If nl will rtc in 6 weeks. If abnormal imaging will schedule with specialist oxana If nl imaging but tenderness persists at 6 week f/u will need to see specialist . [id number] [facility] [address] [address] 08/01/2022 12:12:10 08/01/2022 14:56:46 Gynecologic examination [id number] Z01.419 Z11.51 Take Calcium with Vitamin D 1200mg daily if not receiving in daily diet. It is strongly advised to have an annual flu shot and up can obtain at most pharmacies . If you have not had a TDap shot in the last 10 years you should obtain one as well. Discussed with patient & provided with informatio n regarding Gardisil vaccine to prevent the 4 strains for HPV that cause cervical cancer if under age 26. Encourage safe sexual practices, to use condoms and limit partners if not already in a monogamous relationsh ip. Do monthly self breast exams. Have mammogram yearly or every other year depending on family history. BRCA testing is now available for patients with strong genetic history of female cancer. If interested contact the office. Engage in daily exercise of low impact aerobic exercise 45-60 minutes 4-5 times weekly. Avoid tobacco and illicit drugs as well as using moderation with alcohol intake less than 1-2 8 oz beverages daily. This lifestyle behavior pattern will lead to less health conditions and longer life span. If BMI greater than 25 weight watchers or dietary consult advised. Patient received above instructio ns, and questions have been answered. If you have any questions please call or respond to this email. Patient was made aware of the patient portal and may obtain a paper copy of today's plan if desired. Pap/hpv q3yrs per asccp unless otherwise indicated per asccpSTD Screen declinedGe netic Screen discussedC olon Screen naDexa Screen naRoutine Labs PCPMammo age 40yo unless otherwise indicated. Sexually t ransmitted infectious disease [id number] A64 Missed period [id number] N 92.5 Skin tag [id number] L91.8 [id number] SUSAN RENNER MD [place] [address] [address] 04/27/2024 10:02:13 04/30/2024 12:12:21 Gynecologic examination [id number] Z01.419 Well woman care- Cervical cancer screening: Pap smear obtained today, will follow up on the results with the patient as they become available- Breast cancer screening: mammogram ordered- Colon cancer screening: does not qualify- STD testing: declined Family his tory of breast cancer [id number] Z80.3 - patient reports paternal grandmothe r and aunt with breast cancer- desires familial cancer screening- patient to return to clinic for testing, left prior to filling order out Vaginal irritation [id number] N89.8 - patient reports UTI/vagini tis symptoms- exam wnl- swab and urine culture sent, will treat based on results Multiple s kin tags in groin [id number] D23.5 - patient would like skin tags removed- one skin tag above clitoral rowan- patient to return for removal Lesion of skin of breast [id number] 00539 L98.8 - patient reports two episodes of erythemato us rash in inframamma ry fold- self resolved- likely yeast infection of skin, patient to call clinic if rash returns Menorrhagia [id number] N9 2.0 - patient reports worsening menstrual cycles, regular but heavy- reports perimenopa usal symptoms as well- will evaluate with pelvic US- likely perimenopa usal etiology [id number] Aguilar Summers MD [facility] [address] [address] 09/07/2024 11:03:43 09/07/2024 11:41:40 Abnormal uterine bleeding [id number] 9100 N93.9 N92.0 Health Concerns Section Related Observation LastModified by Organization Detai ls LastModified Time None Recorded Concern Status LastModified by Organization Details LastModified Time None Recorded Advance Directives Directive None Recorded Payers Insurance Date Sequence Insurance Name Policy Number Policy Isabel Covered Member ID Isabel Member ID Guarantor Name 09/07/2024 1 [facility] PRIOR TO 12/21/2020 (MEDICAID REPLACEMENT - HMO) Yamel Chavez [id number] Yamel Chavez 09/07/2024 1 [facility] ON OR AFTER 12/21/20 (MEDICAID REPLACEMENT - HMO) Yamel Chavez [id number] Yamel Chavez Notes Date Note Type Note Provider Name and Address Organization Details Recorded Time 1 text/html Annual GYNReported by PatientHistoryFor history, patient reportsno gynecologic complaints.Genitourina ry symptomsFor menstrual cycle, patient reportsnormal menses. For urinary symptoms, patient reportsno hematuriaandno incontinence. For vulva, patient reportsno genital lesion. For vagina, patient reportsnormal vaginal discharge.Breast symptomsFor breast, patient reportsno breast pain,no breast lump, andno nipple discharge.Endocrine symptomsFor sexual complaints, patient reportsno sexual complaints,no pain during intercourse, andnormal libido. For menopausal symptoms, patient reportsno menopausal symptomsandnormal vaginal lubrication.Psychologi john symptomsFor psychological symptoms, patient reportsno depression,no anxiety, andno pmdd.Preventative measuresFor preventive measures, patient reportsencourage self breast examination,encourage regular exercise,encourage no tobacco use,encourage regular mammograms starting age 40, andhistory of abnormal pap smear/cervical dysplasia. Charlotte Khalil, [facility] [address], [place], [address], [facility] 12/02/2020 11:06:31 1 text/html Bilateral breast tenderness started on Friday but much more on the left side. Progressed to terrible by Friday. Has improved since yesterday. LMP 11-16States no chance of . Kamille abdalla, [facility] 06/13/2021 13:50:45 3 text/html Annual GYNReported by PatientHistoryFor history, patient reportsno gynecologic complaints.Genitourina ry symptomsFor menstrual cycle, patient reportsnormal menses. For urinary symptoms, patient reportsno hematuriaandno incontinence. For vulva, patient reportsno genital lesion. For vagina, patient reportsnormal vaginal discharge.Breast symptomsFor breast, patient reportsno breast pain,no breast lump, andno nipple discharge.Contraceptio nFor current contraception, patient reportscondoms.Endocri ne symptomsFor sexual complaints, patient reportsno sexual complaints,no pain during intercourse, andnormal libido. For menopausal symptoms, patient reportsno menopausal symptomsandnormal vaginal lubrication.Psychologi john symptomsFor psychological symptoms, patient reportsno depression,no anxiety, andno pmdd.Preventative measuresFor preventive measures, patient reportsencourage self breast examination,encourage regular exercise,encourage no tobacco use, andencourage regular mammograms starting age 40. Charlotte Khalil [facility] [address], [place], [address], [facility] 08/01/2022 14:30:02 4 text/html Annual GYNReported by PatientROS as noted in the HPI Presents today for her annual well-woman exam. Denies abnormal vaginal discharge. Desires STD testing. She is sexually active and denies dyspareunia. She is not using contraception, and she states that she is satisfied with this method. She has not noticed any changes or masses in her breasts. LMP 04/17/24. Periods are Q20-30 days. Flow is becoming heavier with large blood clots. No intermenstrual spotting. She has not tried any hormonal control of her periods. She also reports some perimenopausal symptoms that are currently manageable. She would like to discuss screening for familial cancer syndromes. Paternal aunt and grandmother with breast cancer. Patient nor family members have not been tested. She would also like to be tested for a UTI and vaginitis. She reports symptoms for a few days. Has not tried any OTC treatments. She was scheduled for an appointment for skin tag removal however she had to cancel and has not rescheduled. She reports multiple labial skin tags that are bothersome to her. She also reports a rash that has recurred under her left breast. She reports no new irritants or inciting factors. Self-resolved. Not present today. SUSAN RENNER MD [address], [place], [address], [facility] 04/29/2024 23:13:51 OBGyn Episode Ob Episode Information Episode Created Date Number of Fetuses Patient Bloodtype Patient rh Status Prepregnancy Weight lbs Domestic Partner Domestic Partner Phone Father Name Retail Merchandising Coordinator Status 12/03/19 21 1 CLOSED Fetus Data First Name Last Name Admitted to NICU Weight (g) Sex Living Outcome Pediatric Complications Fetus ID Race Codes Race Delivery Type 3373.36 [id number] F Full Term [id number] Vaginal Delivery Chris Calculation Initial Chris Date Initial Exam Date Initial Exam Provider Initial Ultrasound Date Last Menstrual Period Date Ultra Sound Weeks Gestation 0 Eighteen To Twenty Week Chris Update Ultra Sound Date Fundal Height At Umbil Quickening Date Ultra Sound Latest Weeks Gestation Final Chris Confirmed By Final Chris Confirmed Date Final Chris Date Ultra Sound Latest Days Gestation 0 0 Menstrual History Last Menstrual Date Menses Monthly On Bcp Conception Prior Menses Frequency Hcg Plus Date Menarche Onset Age Delivery Information Delivery Date Delivery Type Labor Anesthesia Weeks Gestation Incision Type Labor Labor Length Hrs Delivered By Post Complications Tubal Sterilization Discharge Date Comments 6 42 Discharge Information Feeding Method Contraceptive Method Maternal HG B and HCT Levels
--- OUTSIDE RECORDS SUMMARY | 2025-04-29 10:41 | XMS_ITS | Encounter Summary ---
Author Organization [facility] Healthcare Address [address] [place] [address] Care Team Providers Care Railcar Foreman Name Role Phone Lori Oneill Primary Care Provider [phone] Encounter Details Date Type Department Care Team (Latest Contact Info) Description 04/19/2025 Results Follow-Up [facility] Family Medicine [address] [place] [address] Lori Oneill PA [address] [place] [address] Comprehensive metabolic panel, Mononucleosis screen, CBC with auto differential, Additional followed-up results: 2 Social History Tobacco Use Types Packs/Day Years Used Date Smoking Tobacco: Former Cigarettes 1 24 1 - 03/2021 Smokeless Tobacco: Never Alcohol Use Standard Drinks/Week Comments Never 0 [...] on file Legal 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
--- OUTSIDE RECORDS SUMMARY | 2025-04-29 10:41 | XMS_ITS | Clinical Summary ---
Author Organization [facility] Address [address] [place] [address] Care Team Providers Care Implementation Project Manager Name Role Phone Unavailable Primary Care Provider Unavailabl e Source Comments [facility],non-owned Affiliates and Associated Physician Practices is amultiple site organization consisting of ambulatory clinics and hospital sitesin [place], [place]. This disclosure is being madepursuant to the Care Everywhere program and may not contain all information available regarding this patient. Last updated 18.[facility] [employer] Allergies Active Allergy Reactions Criticality Noted Date Comments Augmentin Urticaria High 09/25/2015 Has successfully taken azithromicin and amoxicillin and erythromycin with only mild stomach upset Medications * Be aware that medications may not be up to date on this document. Alwaysverify current medications with the patient. Vit-Fe Fumarate-FA ( VITAMIN) 28-0.8 MG tablet Take 1 Tab by mouth once daily Active FLUoxetine (PROZAC) 20 MG capsule Take 20 mg by mouth once daily Active lamoTRIgine (LAMICTAL) 100 MG tablet Take 100 mg by mouth at bedtime Active promethazine (PHENERGAN) 25 MG tablet Take 25 mg by mouth every 6 hours as needed for Nausea/Vomiting Q4-6 hours PRN Active loratadine (CLARITIN) 10 MG tablet Take 10 mg by mouth once daily Active calcium carbonate (TUMS) 500 MG chew tablet Take 1 Tab by mouth daily with food Active ondansetron (ZOFRAN) 4 MG tablet Take 4 mg by mouth every 6 hours as needed for Nausea/Vomiting Active acetaminophen (TYLENOL) 500 MG tablet Take 1,000 mg by mouth every 4 hours as needed for Fever or Pain Maximum allowable Acetaminophen amount = 4 Grams (4000 mg) / 24 hours. Active diphenhydrAMIN E (BENADRYL) 25 MG capsule Take 25 mg by mouth at bedtime Active vitamin D3-cholecalcif kevon (CHOLECACIFERO L) 1000 UNITS tablet Take 1,000 Units by mouth once daily 6 Active FLUoxetine (PROZAC) 20 MG capsule Take 1 Cap by mouth once daily Mild depression, PTSD 90 capsule 3 6 Active acetaminophen (TYLENOL) 325 MG tablet 6 Active Aspirin 81 MG Take 1 Tab by mouth once daily 6 Active docusate sodium (COLACE) 100 MG capsule Take 1 Cap by mouth once daily 6 Active lamoTRIgine (LAMICTAL) 100 MG tablet Take 1 Tab by mouth at bedtime Mild depression, PTSD 30 tablet 2 6 Active Docosahexaenoi c Acid ( DHA PO) Take 1 Tab by mouth once daily 6 Active Active Problems Problem Noted Date Diagnosed Date Bipolar disease during in [facility] 05/21/2016 Anxiety disorder affecting , antepartum 05/21/2016 Thrombocythemia 05/07/2016 Overview (02/13/2018): [ ] recheck CBC at visit Maternal drug use complicating , antepa rtum 05/06/2016 Overview (02/13/2018): Occasional Marijuana use. Patient states she uses this to reduce morning sickness. 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, antepartum condition 03/13/2016 Unilateral congenital absence of kidney 02/01/20 16 Encounter for anatomic survey 01/15/2016 Marijuana use 09/25/2015 Tobacco use affecting pregna ncy in first trimester, antepartum 09/25/2015 Psychiatric disorder 09/25/2015 Obesity affecting in first trimester 0 09/25/2015 Medication exposure during first trimester of pr egnancy 09/14/2015 Supervision of high risk in first trim tara 09/14/2015 Immunizations Immunization Administration Dates Next Due FLU VACCINE TRI IIV3 SPLIT PF IM (FLUVIRIN) 02/22 INFLUENZA VACCINE 03/12/2016 TDAP (7yrs+) 03/12/2016 Family History Medical History Relation Name Comments Genetic/Metabolic Disease Father Heart Disease Father AVR Hypertension Father Diabetes Maternal Grandfather Twins Maternal Grandfather Cancer Maternal Grandmother skin Heart Disease Maternal Grandmother Twins Maternal Grandmother Arthritis Mother Diabetes Mother Heart Disease Mother Hypertension Mother Kidney Disease Mother Cancer Paternal Grandmother breast Relation Name Status Comments Father Maternal Grandfather Maternal Grandmother Mother Paternal Grandmother Social History Tobacco Use Types Packs/Day Years Used Date Smoking Tobacco: Every Day Cigarettes 0.3 27.8 Started: 06/23/1997 Alcohol Use Standard Drinks/Week Comments No 0 (1 standard drink = 0.6 oz pur e alcohol) Comments No Sex and Gender Information Value Date Recorded Sex Assigned at Not on file Legal Sex Female 1:15 PM CDT Gender Identity Not on file Sexual Orientation Not on file Last Filed Vital Signs Vital Sign Reading Time Taken Comments Blood Pressure 100/62 06/07/2016 3:27 AM ACCOUNTS SPECIALIST Pulse 98 06/07/2016 1:07 PM ACCOUNTS SPECIALIST Temperature 36.8 C (98.2 F) 06/07/2016 1:07 AM ACCOUNTS SPECIALIST Respiratory Rate 16 05/08/2016 12:16 PM ACCOUNTS SPECIALIST Oxygen Saturation 100% 06/07/2016 1:07 AM ACCOUNTS SPECIALIST Inhaled Oxygen Concentration - - Weight 86.6 kg (191 lb) 06/07/2016 3:27 PM ACCOUNTS SPECIALIST Height 162.6 cm (5' 4) 06/07/2016 3:27 PM ACCOUNTS SPECIALIST Body Mass Index 32.79 06/07/2016 3:27 PM ACCOUNTS SPECIALIST Plan of Treatment Health Maintenance Due Date Last Done Comments LIPID TESTING 1983 MAMMOGRAM 1983 HIV SCREENING 11/24/1998 HEPATITIS C SCREENING 11/20/2001 HEPATITIS B VACCINE (1 of 3 - 19+ 3-dose series) 11/24/2002 PNEUMOCOCCAL VACCINE (1 of 2 - PCV) 11/24/2002 PAP SMEAR 11/24/2004 HPV VACCINE (1 - 3-dose SCDM series) 11/24/2010 COVID-19 VACCINE (1 - 2023-2 5 season) 2025 INFLUENZA VACCINE (#1) 2025 6, 03/12/2016 DTAP/TDAP/TD VACCINES (2 - T d or Tdap) 03/12/2026 03/12/2016 ZOSTER VACCINE (1 of 2) 11/24/2033 HIB VACCINE Aged Out No longer eligi ble based on patient's age to complete this topic MENINGOCOCCAL (Group B) VACCINE SHARED DECISION-MAKING Aged Out No longer eligible based on patient's age to complete this topic MENINGOCOCCAL GROUPS A/C/Y/W VACCINE Aged Out No longer eligible b ased on patient's age to complete this topic Insurance [employer] Cognitive Code [facility] [employer] Cognitive Code [facility]
--- OUTSIDE RECORDS SUMMARY | 2025-04-29 10:41 | XMS_ITS | Clinical Summary ---
Author Organization [facility] Care Team Providers Care Dipper And Baker Name Role Phone Unavailable Primary Care Provider Unavailabl e Social History Tobacco Use Types Packs/Day Years Used Date Smoking Tobacco: Never Assessed Comments Unknown Sex and Gender Information Value Date Recorded Sex Assigned at Not on file Legal Sex Female 10:07 PM CDT Gender Identity Not on file Sexual Orientation Not on file Plan of Treatment Not on file
== END 2025-04-29 09:57 | disposition home or self-care (01) ==
PROVIDERS: PCP Physician Assistant; Visit Provider Physician Assistant
DX: R59.0 Localized enlarged lymph nodes (principal)
CPT/HCPCS: 70491; Q9967